=== PATIENT | male | born 1945 | race Caucasian/White ===

== ENCOUNTER 2017-01-04 08:04 | Observation (INO) | payer MEDICARE ==
[2017-01-04] MEDS ORDERED: Aspirin Low Dose CHEW TAB* 81 MG PO ONE (08:15)
[2017-01-04 08:38] LABS: Hematocrit 40 % (42-52); Hemoglobin 14.2 g/dl (14.0-18.0); Mean Corpuscular HGB Conc 36 g/dl (31-36); Mean Corpuscular Hemoglobin 34 pg (27-31); Mean Corpuscular Volume 96 fL (80-94); Mean Platelet Volume 9 um3 (7.4-10.4); Red Blood Count 4.13 10^6/ul (4.0-5.4); Red Cell Distribution Width 14 % (10.5-15); White Blood Count 7.8 10^3/ul (3.5-10.8)
[2017-01-04 08:56] LABS: BUN/Creatinine Ratio 15.6 (8-20); Calcium 8.9 mg/dL (8.6-10.3); EGFR African American 99.9 (>60); EGFR Non-African American 77.7 (>60); Globulin 2.4 g/dL (2-4); Magnesium 1.9 mg/dL (1.9-2.7); Potassium 3.6 mmol/L (3.5-5.0); Total Bilirubin 0.5 mg/dL (0.2-1.0); Total Protein 6.4 g/dL (6.4-8.9)
--- NOTE | 2017-01-04 09:06 | RAD ---
INDICATION: Chest pain COMPARISON: Similar chest x-ray November 17, 2013 TECHNIQUE: Single AP portable view of the chest was obtained. FINDINGS: Image quality is compromised due to the relative inferiority of a portable chest x-ray. The patient appears to be rotated towards his right. The heart and mediastinum exhibit normal size and contour. The lungs are grossly clear. There is no evidence of a large pleural effusion. Visualized bones are normal for the patient's age. IMPRESSION: No radiographic evidence for acute cardiopulmonary abnormality on this portable chest x-ray.
[2017-01-04 09:45] LABS: TSH (Thyroid Stimulating Horm) 3.52 mcIU/mL (0.34-5.60)
[2017-01-04 11:14] LABS: Urine Bilirubin Negative (Negative); Urine Glucose Negative (Negative); Urine Nitrite Negative (Negative)
[2017-01-04] MEDS: Heparin VIAL(*) 5000 UNITS/ML VIAL (FIVE THOUSAND) SUBCUT SCH ×2 (13:41→23:02)
[2017-01-04] MEDS ORDERED: amLODIPine TAB* 5 MG PO SCH (18:00)
[2017-01-04] MEDS ORDERED: Tamsulosin CAP* 0.4 MG PO SCH (18:00)
[2017-01-04] MEDS ORDERED: Ezetimibe TAB* 10 MG PO SCH (18:00)
--- NOTE | 2017-01-04 18:14 | ED ---
Saran Bailey Thomas, scribed for Cameron Forde MD on 01/04/17 at 0922 . HPI Chest Pain - HPI Summary HPI Summary: The pt is a 71 y/o M presenting to the ED c/o CP that began this AM at 04:00. The pain radiates to his left arm. He rates the pain 2/10. 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 He says that this chest pain is similar to his previous MIs. He is unsure of the date of his last stress test. The pain is aggravated and alleviated by nothing. 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 Pt additionally c/o paresthesias in his chest and bilateral arms and diaphoresis. Pt denies N/V, SOB, near-syncope, and dizziness. He took his daily medication. Dr. Shin is his database designer. - History of Current Complaint Chief Complaint: EDChestPainROMI Time Seen by Provider: 01/04/17 08:15 Hx Obtained From: Patient Onset/Duration: Started Hours Ago - onset today at 04:00, Still Present Timing: Constant Current Severity: Mild Pain Intensity: 2 Pain Scale Used: 0-10 Numeric Chest Pain Radiates: Yes Chest Pain Radiates To:: Arm - left Character: Other: - Similar to previous MIs Aggravating Factor(s): Nothing Alleviating Factor(s): Nothing Associated Signs and Symptoms: Positive: Chest Pain, Diaphoresis, Other: - Paresthesias in chest and bilateral forearms; NEGATIVE: near-syncope. Negative : Shortness of Breath, Nausea, Vomiting Related History: Similar Episode/Dx as: - prior MIs - Allergy/Home Medications Allergies/Adverse Reactions: Allergies Allergy/AdvReac Type Severity Reaction Status Date / Time Fish Oil Allergy Stomach Verified 01/04/17 10:04 Cramps Niacin Allergy Rash Verified 01/04/17 10:04 Statins Allergy Muscle Ache Verified 01/04/17 10:04 Home Medications: Home Medications Metoprolol Succinate XL TAB* [Toprol XL TAB*] 100 mg PO DAILY 01/04/17 [History Confirmed 01/04/17] Tamsulosin HCl [Flomax] 0.4 mg PO BEDTIME 01/04/17 [History Confirmed 01/04/17] amLODIPine TAB* [Norvasc 5 mg TAB*] 2.5 mg PO QPM 01/04/17 [History Confirmed ] PMH/Surg Hx/FS Hx/Imm Hx Previously Healthy: No Endocrine/Hematology History: Denies: Hx Diabetes Cardiovascular History: Reports: Hx Angina, Hx Coronary Artery Disease, Hx Hypercholesterolemia, Hx Hypertension, Hx Myocardial Infarction Denies: Hx Valvular Heart Disease Respiratory History: Denies: Hx Asthma, Hx Chronic Obstructive Pulmonary Disease (COPD) - Surgical History Surgery Procedure, Year, and Place: Stents Infectious Disease History: No Infectious Disease History: Denies: Traveled Outside the [place] in Last 30 Days - Family History Known Family History: Positive: Cardiac Disease - Social History Alcohol Use: None Hx Substance Use: No Substance Use Type: Reports: None Hx Tobacco Use: No Smoking Status (MU): Never Smoked Tobacco Review of Systems Positive: Skin Diaphoresis. Negative: Fever Positive: Chest Pain - radiates to his left arm, onset today at 04:00 Negative: Shortness Of Breath Negative: Vomiting, Nausea Neurological: Other - Paresthesias on chest and bilateral forearms. NEGATIVE: near-syncope, dizziness All Other Systems Reviewed And Are Negative: Yes Physical Exam - Summary Physical Exam Summary: VITAL SIGNS: Reviewed. GENERAL: ~Patient is a well-developed and nourished male who is lying comfortable in the stretcher. ~Patient is not in any acute respiratory distress. HEAD AND FACE: No signs of trauma. ~No ecchymosis, hematomas or skull depressions. No sinus tenderness. EYES: PERRLA, EOMI x 2, No injected conjunctiva, no nystagmus. EARS: Hearing grossly intact. Ear canals and tympanic membranes are within normal limits. MOUTH: Oropharynx within normal limits. NECK: Supple, trachea is midline, no adenopathy, no JVD, no carotid bruit, no c- spine tenderness, neck with full ROM. CHEST: Symmetric, no tenderness at palpation LUNGS: Clear to auscultation bilaterally. No wheezing or crackles. CVS: Regular rate and rhythm, S1 and S2 present, no murmurs or gallops appreciated. ABDOMEN: Soft, non-tender. No signs of distention. No rebound no guarding, and no masses palpated. Bowel sounds are normal. EXTREMITIES: FROM in all major joints, no edema, no cyanosis or clubbing. NEURO: Alert and oriented x 3. No acute neurological deficits. Speech is normal and follows commands. SKIN: Dry and warm Triage Information Reviewed: Yes Vital Signs On Initial Exam: Initial Vitals Temp Pulse Resp BP Pulse Ox 98.0 F 74 12 98/67 97 01/04/17 08:05 01/04/17 08:05 01/04/17 08:05 01/04/17 08:05 01/04/17 08:05 Vital Signs Reviewed: Yes - [place] Coma Scale Coma Scale Total: 15 Diagnostics - Vital Signs Vital Signs Temp Pulse Resp BP Pulse Ox 01/04/17 08:41 93 01/04/17 08:30 60 12 103/62 95 01/04/17 08:20 61 12 95 01/04/17 08:18 99/58 01/04/17 08:05 98.0 F 74 12 98 97 - Laboratory Lab Results: Lab Results 01/04/17 01/04/17 01/04/17 Range/Units 08:25 08:25 08:25 WBC (3.5-10.8) 10^3/ul RBC (4.0-5.4) 10^6/ul Hgb (14.0-18.0) g/dl Hct (42-52) % MCV (80-94) fL MCH (27-31) pg MCHC (31-36) g/dl RDW (10.5-15) % Plt Count (150-450) 10^3/ul MPV (7.4-10.4) um3 Neut % (Auto) (38-83) % Lymph % (Auto) (25-47) % [place] % (Auto) (1-9) % Eos % (Auto) (0-6) % Baso % (Auto) (0-2) % Absolute Neuts (auto) (1.5-7.7) 10^3/ul Absolute Lymphs (auto) (1.0-4.8) 10^3/ul Absolute Monos (auto) (0-0.8) 10^3/ul Absolute Eos (auto) (0-0.6) 10^3/ul Absolute Basos (auto) (0-0.2) 10^3/ul Absolute Nucleated RBC 10^3/ul Nucleated RBC % APTT 28.4 (26.0-36.3) seconds Sodium 137 (133-145) mmol/L Potassium 3.6 (3.5-5.0) mmol/L Chloride 107 (101-111) mmol/L Carbon Dioxide 22 (22-32) mmol/L Anion Gap 8 (2-11) mmol/L BUN 15 (6-24) mg/dL Creatinine 0.96 (0.67-1.17) mg/dL Est GFR ( Amer) 99.9 (>60) Est GFR (Non-Af Amer) 77.7 (>60) BUN/Creatinine Ratio 15.6 (8-20) Glucose 134 H (70-100) mg/dL Lactic Acid (0.5-2.0) mmol/L Calcium 8.9 (8.6-10.3) mg/dL Magnesium 1.9 (1.9-2.7) mg/dL Total Bilirubin 0.50 (0.2-1.0) mg/dL AST 20 (13-39) U/L ALT 18 (7-52) U/L Alkaline Phosphatase 47 (34-104) U/L Total Creatine Kinase 154 (10-223) U/L CK-MB (CK-2) 4.1 (0.6-6.3) ng/mL Troponin I 0.00 (<0.04) ng/mL B-Natriuretic Peptide 30 ( - 100) pg/mL Total Protein 6.4 (6.4-8.9) g/dL Albumin 4.0 (3.2-5.2) g/dL Globulin 2.4 (2-4) g/dL Albumin/Globulin Ratio 1.7 (1-3) TSH Pending 01/04/17 01/04/17 Range/Units 08:25 08:25 WBC 7.8 (3.5-10.8) 10^3/ul RBC 4.13 (4.0-5.4) 10^6/ul Hgb 14.2 (14.0-18.0) g/dl Hct 40 L (42-52) % MCV 96 H (80-94) fL MCH 34 H (27-31) pg MCHC 36 (31-36) g/dl RDW 14 (10.5-15) % Plt Count 155 (150-450) 10^3/ul MPV 9 (7.4-10.4) um3 Neut % (Auto) 76.4 (38-83) % Lymph % (Auto) 16.5 L (25-47) % Dorado % (Auto) 5.3 (1-9) % Eos % (Auto) 0.9 (0-6) % Baso % (Auto) 0.9 (0-2) % Absolute Neuts (auto) 5.9 (1.5-7.7) 10^3/ul Absolute Lymphs (auto) 1.3 (1.0-4.8) 10^3/ul Absolute Monos (auto) 0.4 (0-0.8) 10^3/ul Absolute Eos (auto) 0.1 (0-0.6) 10^3/ul Absolute Basos (auto) 0.1 (0-0.2) 10^3/ul Absolute Nucleated RBC 0 10^3/ul Nucleated RBC % 0 APTT (26.0-36.3) seconds Sodium (133-145) mmol/L Potassium (3.5-5.0) mmol/L Chloride (101-111) mmol/L Carbon Dioxide (22-32) mmol/L Anion Gap (2-11) mmol/L BUN (6-24) mg/dL Creatinine (0.67-1.17) mg/dL Est GFR ( Amer) (>60) Est GFR (Non-Af Amer) (>60) BUN/Creatinine Ratio (8-20) Glucose (70-100) mg/dL Lactic Acid 1.3 (0.5-2.0) mmol/L Calcium (8.6-10.3) mg/dL Magnesium (1.9-2.7) mg/dL Total Bilirubin (0.2-1.0) mg/dL AST (13-39) U/L ALT (7-52) U/L Alkaline Phosphatase (34-104) U/L Total Creatine Kinase (10-223) U/L CK-MB (CK-2) (0.6-6.3) ng/mL Troponin I (<0.04) ng/mL B-Natriuretic Peptide ( - 100) pg/mL Total Protein (6.4-8.9) g/dL Albumin (3.2-5.2) g/dL Globulin (2-4) g/dL Albumin/Globulin Ratio (1-3) TSH Result Diagrams: 01/04/17 08:25 09/27/17 08:25 Lab Statement: Any lab studies that have been ordered have been reviewed, and results considered in the medical decision making process. - Radiology CXR Xray Interpretation: No Acute Changes - CXR shows No radiographic evidence for acute cardiopulmonary abnormality on this portable chest x-ray. ED physician has reviewed this report and agrees. Radiology Interpretation Completed By: Radiologist - EKG 08:06 Cardiac Rate: NL - 63 BPM EKG Interpretation: Sinus rhythm. No ST elevations. ST depressions in V4-V6 EKG Comparison: Other - ST depressions are similar to prevoius EKG done on 11/17 Chest Pain Course/Dx - Course Assessment/Plan: The pt is a 71 y/o M presenting to the ED c/o CP that began this AM at 04:00. The pain radiates to his left arm. He rates the pain 2/10. 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 He says that this chest pain is similar to his previous MIs. He is unsure of the date of his last stress test. The pain is aggravated and alleviated by nothing. 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 Pt additionally c/o paresthesias in his chest and bilateral arms and diaphoresis. Pt denies N/V, SOB, near-syncope, and dizziness. He took his daily medication. Dr. Shin is his database designer. Test results are without significant abnormality. Troponin #1 is negative. CXR is negative. However, the patient has comorbidities for ACS and the patients chest pain was relieved by NTG. Therefore, I discussed the case with Dr. Persaud who accepts the patient for admission. The patient is hemodynamically stable and alert and oriented x3. - Chest Pain Differential Diagnosis/HQI/PQRI: Acute KS, ACS, Angina, Aortic Aneurysm, CHF, Chest Wall, GI Disease, Lower Respiratory Infection - Diagnoses Provider Diagnoses: Chest pain rule out ACS - Provider Notifications Discussed Care Of Patient With: Alan Persaud Time Discussed With Above Provider: 09:49 Instructed by Provider To: Other - I consulted with Dr. Persaud, who [place] the patient [place] [facility] [place] Discharge Plan Condition: Fair Disposition: ADMITTED TO [facility] Discharge Disposition Comment: By Dr. Persaud The documentation as recorded by the scribe, Saran,Fernando accurately reflects the service I personally performed and the decisions made by me, Cameron Forde MD.
--- NOTE | 2017-01-04 21:34 | HP ---
CC: Dr. Scotty Quintanilla* HISTORY AND PHYSICAL: DATE OF ADMISSION: 01/04/17 PRIMARY CARE PROVIDER: Dr. Scotty Quintanilla. ATTENDING PHYSICIAN: Dr. Flako Persaud* (report dictated by Ondina Mcmillan NP) CHIEF COMPLAINT: Chest pain. HISTORY OF PRESENT ILLNESS: Mr. Vasquez is a 71-year-old male with past medical history significant for coronary artery disease, status post myocardial infarction x2, hypertension, hyperlipidemia, BPH, and gout who presented to the emergency room with complaints of chest pain. The patient states that he was feeling in his normal state of health when he went to bed last night. He woke at 4 a.m. this morning with a chest discomfort that he describes started as indigestion and radiated up under his left pectoral and then continued to turn into pain radiating down his left arm and causing tingling down his left arm. The patient reports diaphoresis during this episode. He felt that this pain was similar to his previous PA. He took 2 aspirin and a nitro. He states that he tried to get comfortable. He tried to walk, he tried to rest. It is to note that the patient last had a stress test in [address] Shin. He last had a cardiac catheterization in 2010 at which time he had a stent placed inside his original stent. The patient states that he does intermittently get this chest discomfort, but he had the pain from approximately 4 a.m. to a little after 8 a.m. today, that was constant, it did ease up at times, but overall was constant. He denied any fever, chills, associated shortness of breath or nausea and vomiting. He reports that he is able to push mow and use the stair climber for 20 minutes at home without chest discomfort. He is unaware of any food triggers that may be causing the discomfort. The patient reports that his pain started out as feeling like indigestion. He states this is usually how his chest pain starts. He then feels that often if he belches, it will go away and feels better, but in the incident today, the pain did not get better. When the pain continued, he decided to call EMS and be brought to the emergency room for further evaluation of his symptoms. While in the emergency room, the patient had an EKG showing a sinus rhythm at a rate of 53. There were no acute signs of ischemia. His EKG was similar to previous EKG from 11/17/13. He had labs that were unremarkable. He had a troponin of 0.00. TSH of 3.52. Due to the patient's presentation and past medical history, the Hospitalists were asked to evaluate him for admission. PAST MEDICAL HISTORY: 1. Coronary artery disease. 2. Myocardial infarction x2. 3. Hypertension. 4. Hyperlipidemia. 5. BPH. 6. Kidney stones. 7. Gout. PAST SURGICAL HISTORY: 1. Status post cystoscopy. 2. Status post cardiac catheterization x2 in 2000 and 2010. HOME MEDICATIONS: 1. Flomax 0.4 mg oral daily. 2. Norvasc 5 mg oral every morning and 2.5 mg oral every evening. 3. Aspirin 81 mg oral daily. 4. Allopurinol 300 mg oral daily. 5. Zetia 10 mg oral every evening. 6. FiberCon 1250 mg oral daily. 7. Pantoprazole 30 mg oral daily. 8. Metoprolol succinate 100 mg oral daily. 9. Crestor 5 mg oral every other day in the evening. 10. Quinapril 40 mg oral daily. ALLERGIES: The patient has a sensitivity to FISH OIL causing GI upset, STATINS causing muscle aches, and NIACIN causes a rash. FAMILY HISTORY: The patient's son has coronary artery disease and needed stenting in his 40s. The patient's father passed in his 80s from a myocardial infarction and the patient's mother passed at age 91 from a myocardial infarction. The patient denies any family history of diabetes mellitus or cancer. SOCIAL HISTORY: The patient is a former smoker, quitting approximately 16 years ago. Prior to that, he had a 36-year 1 pack a day history. He denies alcohol or recreational drug use. The patient is and lives with his . His , Erendira Lorenzo, will be his surrogate decision maker in the event that he is unable to make decision for himself. REVIEW OF SYSTEMS: I performed a 14-point review of systems. All the pertinent positives and negatives are mentioned in the history of present illness. The remaining review of systems is negative. PHYSICAL EXAMINATION GENERAL APPEARANCE: The patient is alert, pleasant, appears to be in no acute distress. VITAL SIGNS: Temperature 98.0, heart rate 67, respiratory rate 16, O2 sat 95% on room air, blood pressure 101/64. HEENT: Normocephalic, atraumatic. Pupils are equal and reactive to light. Extraocular movements are intact. RESPIRATORY: There is no accessary muscle use. The lungs are clear to auscultation bilaterally. CARDIOVASCULAR: Regular rate and rhythm. S1, S2 present. There are no murmurs , rubs, or gallops heard. ABDOMEN: Soft, nontender, and nondistended. There are bowel sounds present x4. EXTREMITIES: There is no lower extremity edema. DP and PT pulses are 2+ and symmetric. MUSCULOSKELETAL: There is no clubbing or cyanosis noted. The patient exhibits good strength in all extremities. NEUROLOGICAL: The patient is alert and oriented x4. Cranial nerves II through XII are grossly intact. PSYCHOLOGICAL: The patient is calm and cooperative. SKIN: There are no rashes or abnormalities seen. DIAGNOSTIC STUDIES/LABORATORY DATA: Sodium 137, potassium 3.7, chloride 107, CO2 22, BUN 15, creatinine 0.96, glucose 134. White blood cell count 7.8, hemoglobin 14.2, hematocrit 40, platelet count 155, troponin 0.00, TSH 3.52. Urinalysis negative. EKG shows sinus rhythm, rate of 63 with PVCs. There are no acute signs of ischemia. This EKG is similar to previous EKG from 11/17/13. Chest x-ray from today. Radiologist impression: No acute cardiopulmonary abnormality on this portable chest x-ray. IMPRESSION: Mr. Vasquez is a 71-year-old male with past medical history significant for coronary artery disease, myocardial infarction, hypertension, hyperlipidemia, and benign prostatic hypertrophy who presents to the emergency room with complaints of constant chest pain for approximately 4 hours starting this morning in addition to occasional intermittent chest discomfort. He will be admitted as an observation for chest pain, rule out acute coronary syndrome. ASSESSMENT AND PLAN: 1. Chest pain. Rule out acute coronary syndrome. The patient will be monitored on telemetry. His initial troponin is 0.00. He has no signs of acute ischemia on his EKG. We will trend the patient's troponin's. If he does in fact rule out for acute coronary syndrome, we will do an exercise nuclear stress test in the morning. I have discussed the patient with his primary web merchandiser, Dr. Shin, who agrees with the plan of care. His THOMAS score is a 3. 2. History of coronary artery disease and myocardial infarction x2. We will continue the patient on his aspirin, Zetia, FiberCon, Crestor, and metoprolol. 3. Hypertension. We will continue the patient on his home metoprolol and Norvasc. 4. Hyperlipidemia. We will continue the patient on Zetia, FiberCon on Crestor. We will also check fasting lipids in the morning. 5. Benign prostatic hypertrophy. We will continue the patient on tamsulosin. 6. Gout. We will continue the patient on his home allopurinol. 7. Fluids, electrolytes, and nutrition. The patient will be on heart-healthy diet. 8. Code status. Full code. 9. DVT prophylaxis. The patient is on high risk and will have subcu heparin. 10. Disposition. Observation. TIME SPENT: Time spent for this admission was approximately 60 minutes, greater than half of that was spent with the patient and discussing medications, past medical history, and events leading up to his arrival today and performing a physical examination. The case has been reviewed with the attending, Dr. Persaud, who agrees with the plan of care. Reviewed by NIRU HARMAN 01/10/17 1729 [id number]/[facility] #: [id number] AILIN
[2017-01-05 05:09] LABS: HDL Cholesterol 36.7 mg/dL
[2017-01-05] MEDS: Heparin VIAL(*) 5000 UNITS/ML VIAL (FIVE THOUSAND) SUBCUT SCH (05:35)
[2017-01-05] MEDS ORDERED: Allopurinol TAB* 300 MG PO SCH (09:00)
[2017-01-05] MEDS ORDERED: Metoprolol Succinate XL TAB* 100 MG PO SCH (09:00)
[2017-01-05] MEDS ORDERED: Aspirin Low Dose CHEW TAB* 81 MG PO SCH (09:00)
[2017-01-05] MEDS ORDERED: Calcium Polycarbophil TAB* 625 MG PO SCH (09:00)
[2017-01-05] MEDS ORDERED: Lisinopril TAB* 10 MG PO SCH (09:00)
[2017-01-05] MEDS ORDERED: amLODIPine TAB* 5 MG PO SCH (09:00)
[2017-01-05] MEDS ORDERED: Omeprazole CAP* 20 MG PO SCH (09:00)
[2017-01-05 09:49] VITALS: BP 134/71
--- NOTE | 2017-01-05 09:54 | RAD ---
INDICATION: Chest pain. Previous MR COMPARISON: December 23, 2014 TECHNIQUE: A single day SPECT protocol was utilized. Rest images were acquired following the intravenous injection of 10.99 millicuries of technetium 99m tetrofosmin. Exercise stress images were acquired following the intravenous administration of 25.87 millicuries of technetium 99m tetrofosmin. The patient was exercised to a peak heart rate of 142 which is 94 of age predicted maximum. FINDINGS: There is a moderate-sized inferior wall defect which appears fixed and is consistent with prior myocardial infarction. The current examination shows no definitive rigoberto-infarct ischemia.. The cardiac chamber size is normal. There there is hypokinesis in the inferior wall. The ejection fraction is calculated at 40% percent stress. IMPRESSION: MODERATE SIZED FIXED INFERIOR WALL DEFECT. HYPOKINESIS INFERIOR WALL WITH DEPRESSED EJECTION FRACTION. ASSESSMENT: INTERMEDIATE-RISK
--- NOTE | 2017-01-05 12:08 | PN ---
Subjective Date of Service: 01/05/17 Interval History: Patient seen and examined at bedside. Pt denies any further chest discomfort since he was in the emergency room. Denies fever, chills, shortness of breath, N /V/D. Pt states that he is able to push mow for 45 minutes and work on the stair climber for 20-30 minutes without chest discomfort. Tele: Sinus rhythm, rate 50-70's, few short episodes of sinus bhavesh with HR as low as 48., few PVCs. Family History: Unchanged from Admission Social History: Unchanged from Admission Past Medical History: Unchanged from Admission Objective Active Medications: Allopurinol (Zyloprim Tab*) 300 mg PO DAILY [facility] Amlodipine Besylate (Norvasc Tab*) 5 mg PO QAM [facility] Amlodipine Besylate (Norvasc Tab*) 2.5 mg PO QPM [facility] Aspirin (Aspirin Low Dose Tab*) 81 mg PO DAILY [facility] Calcium Polycarbophil (Fibercon Tab*) 1,250 mg PO DAILY [facility] Ezetimibe (Zetia Tab*) 10 mg PO QPM [facility] Heparin Sodium (Porcine) (Heparin Vial(*)) 5,000 units SUBCUT Q8HR [facility] Lisinopril (Prinivil Tab*) 40 mg PO DAILY [facility] Metoprolol Succinate (Toprol Xl Tab*) 100 mg PO DAILY [facility] Omeprazole (Prilosec Cap*) 20 mg PO DAILY [facility] Rosuvastatin Calcium (Crestor (Nf)) 5 mg PO EVERY OTHER DAY@0900 [facility] Reason: Protocol Tamsulosin HCl (Flomax Cap*) 0.4 mg PO DAILY@1800 [facility] Vital Signs 01/04/17 01/04/17 01/04/17 15:26 19:37 23:21 Temperature 97.7 F 98.2 F 97.5 F Pulse Rate 57 60 55 Respiratory 18 18 16 Rate Blood Pressure 113/64 132/64 116/72 (mmHg) O2 Sat by Pulse 98 98 98 Oximetry 01/05/17 01/05/17 01/05/17 04:30 08:00 09:47 Temperature 98.1 F 97.4 F Pulse Rate 59 62 Respiratory 16 16 Rate Blood Pressure 124/60 134/71 (mmHg) O2 Sat by Pulse 98 99 Oximetry Oxygen Devices in Use Now: None Appearance: NAD, sitting up in bed Ears/Nose/Mouth/Throat: Mucous Membranes Moist Respiratory: Symmetrical Chest Expansion and Respiratory Effort, Clear to Auscultation Cardiovascular: NL Sounds; No Murmurs; No JVD, RRR Abdominal: NL Sounds; No Tenderness; No Distention Extremities: No Edema Skin: No Rash or Ulcers Neurological: Alert and Oriented x 3, NL Muscle Strength and Tone Lines/Tubes/Other Access: Clean, Dry and Intact Peripheral IV - site benign Nutrition: Taking PO's Result Diagrams: 01/04/17 08:25 01/04/17 08:25 Additional Lab and Data: Assess/Plan/Problems-Billing Assessment: Mr. Vasquez is a 71 yo male with PMH significant for CAD, VA x2 with stents, HTN, HLD, BPH, and gout who presented to the emergency room with complaints of chest pain. - Patient Problems (1) Chest pain Code(s): R07.9 - CHEST PAIN, UNSPECIFIED SNOMED Code(s): 23266162 Comment: - Chest pain free since arrival to ED - Pt was able to do exercise stress test without chest pain - Troponin 0.00 x3 - Fasting lipids - WNL - Nuclear exercise stress test - Negative exercise stress, Intermediate risk - moderate sized fixed inferior wall defect, hypokenesis inferior wall with depressed EF. 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 (2) CAD (coronary artery disease) Code(s): I25.10 - ATHSCL HEART DISEASE OF [place] CORONARY ARTERY W/O ANG PCTRS SNOMED Code(s): 28549404 Comment: - S/P VA x2 with stents - Continue ASA, Zetia, Fibercon, Crestor, and metoprolol (3) HTN (hypertension) Code(s): I10 - ESSENTIAL (PRIMARY) HYPERTENSION SNOMED Code(s): 29510244 Comment: - Normotensive - Continue Norvasc and metoprolol (4) HLD (hyperlipidemia) Code(s): E78.5 - HYPERLIPIDEMIA, UNSPECIFIED SNOMED Code(s): 03360426 Comment: - Lipids WNL - Continue Zetia, Fibercon, creastor (5) BPH (benign prostatic hyperplasia) Code(s): N40.0 - BENIGN PROSTATIC HYPERPLASIA WITHOUT LOWER URINRY TRACT SYMP SNOMED Code(s): 088154067 Comment: - Continue tamsulosin (6) Gout Code(s): M10.9 - GOUT, UNSPECIFIED SNOMED Code(s): 11280037 Comment: - Continue allopurinol (7) DVT prophylaxis Code(s): DVT6702 - SNOMED Code(s): 851126980 (8) Full code status Code(s): Z78.9 - OTHER SPECIFIED HEALTH STATUS SNOMED Code(s): 064644355 Status and Disposition: OBV. Stable for discharge to home.
[2017-01-06] MEDS ORDERED: CMC:Rosuvastatin (NF) 5 MG TAB PO SCH (09:00)
--- NOTE | 2017-01-06 13:23 | DS ---
CC: Dr. Reji Shin; Dr. Scotty Quintanilla * DISCHARGE SUMMARY: DATE OF ADMISSION: 01/04/17 DATE OF DISCHARGE: 01/05/17 ATTENDING PHYSICIAN: Dr. Alfa Henao * (dictated by Ondina Mcmillan NP) PRIMARY CARE PROVIDER: Dr. Scotty Quintanilla. PRIMARY DIAGNOSIS: Chest pain, unclear etiology. Suspect secondary to acid reflux. SECONDARY DIAGNOSES: 1. History of coronary artery disease. 2. Myocardial infarction x2. 3. Hypertension. 4. Hyperlipidemia. 5. Benign prostatic hypertrophy 6. Gout. PROCEDURES WHILE IN THE HOSPITAL: Nuclear exercise stress test on 01/05/17. Employment Assistant's impression: Negative exercise EKG for inducible ischemia and excess of heart rate. Low risk stress TM DTS +5. Normal limit rest BP. Normal limit exercise BP. MPI pending per radiology. Radiologist's impression : Intermediate risk. Moderate sized fixed inferior wall defect. Hypokinesis inferior wall with depressed ejection fraction. STUDIES WHILE IN THE HOSPITAL: Chest x-ray from 01/04/17. Radiologist's impression: No acute cardiopulmonary abnormality on this portable chest x-ray. DISCHARGE MEDICATIONS: Continued home medications: 1. Flomax 0.4 mg oral daily. 2. Norvasc 5 mg oral every morning and 2.5 mg oral every evening. 3. Aspirin 81 mg oral daily. 4. Allopurinol 300 mg oral daily. 5. Zetia 10 mg oral every evening. 6. FiberCon 1250 mg oral daily. 7. Pantoprazole 30 mg oral daily. 8. Metoprolol succinate 100 mg oral daily. 9. Crestor 5 mg oral every other day in the evening. 10. Quinapril 40 mg oral daily. HISTORY OF PRESENT ILLNESS/HOSPITAL COURSE: Mr. Vasquez is a 71-year-old male with past medical history significant for coronary artery disease, status post myocardial infarction x2 with cardiac stents, hypertension, hyperlipidemia, BPH , and gout who presented to the emergency room with complaints of chest discomfort. The patient states that he was in his normal state of health when he woke at approximately 4 a.m. with chest discomfort that he felt like initially started like indigestion then radiated up underneath his left pectoral and continued to radiate into his left arm causing pain and tingling down his arm. The patient also reported diaphoresis with this episode. The patient states that the pain was similar to his previous VT. He reported feeling of doom. He took 2 aspirin and nitroglycerin. He tried to walk around and get comfortable, he would walk and rest, he was unable to relieve the pain at home, so he called EMS and the patient was brought to the emergency room for further evaluation of his symptoms. It is of note that prior to that the patient had a stress test last in [address] Shin. He also last had a cardiac catheterization in 2010, at which time he had a second stage stent placed inside his original stent. The patient states that he intermittently gets a chest discomfort that initially starts out as like an indigestion, sometimes he is able to belch and it goes the away; other times he is unable to get that discomfort to go away. Patient also reports that he is able to push mow his lawn and exercise for 20 minutes on the stepper without any chest discomfort at home. He is unable to associate his discomfort with anything that he is eating. While in the emergency room the patient had an EKG sinus bradycardia with a rate of 53. He showed no acute signs of ischemia, it was similar to previous EKG from 11/17/13. The patient had labs drawn that were unremarkable. He had initial troponin 0.00. Due to the patient's history and presentation hospitalists were asked to evaluate the patient for admission. While in the hospital, the patient had his troponins trended. He remained flat at 0.00. He underwent an exercise nuclear stress test within normal exercise portion and the nuclear medicine portion read as an intermediate risk due to a moderate sized fixed inferior wall defect and hypokinesis. Patient continued to be chest pain free during his stay. It is to note that his EF is slightly lower than his previous EF from stress test in 2014, at which time his EF was 48 %. Cardiology on- call was side consulted due to the intermediate risk of the stress test. He felt that this are of fixed defect was from the patient's previous MIs and he was okay to be discharged with the close followup with his primary care provider. The patient had lipid panel that was within normal limits. He was intermittently bradycardic with heart rate down to 52, the lowest was at 48. He had occasional PVCs. Mr. Vasquez is stable for discharge to home today. PHYSICAL EXAMINATION: Vital Signs are as follows; temperature 97.4, heart rate 62, respiratory rate 16, O2 sat 99% on room air. Blood pressure 154/71. DISCHARGE PLAN: Mr. Vasquez is stable for discharge home today. ACTIVITY: As tolerated. DIET: Heart healthy diet. As far as the patient's chest discomfort at this time it is unclear etiology, although I suspect it could be secondary to indigestion. Patient will be continued on his usual home medications and has had no changes in his medications. The patient has a follow up appointment with his primary care provider, Dr. Quintanilla on January 11 at 2 p.m. then he has a follow up appointment with his wood barker Dr. Shin on February 18 at 3 :20 p.m. The patient has been asked to return to the emergency room for any return of chest pain or shortness of breath. This is a summarized report of a complex medical history and hospital stay. For further details, please see the entire medical record. TIME SPENT: Time for this discharge was approximately 60 minutes, greater than half of that was spent [id number] with the patient discussing medications, discharge plans and instructions. CONDITION ON DISCHARGE: Stable. Reviewed by NIRU HARMAN 01/10/17 1731 [id number]/[facility] #: [id number] AILIN
== END 2017-01-05 12:25 | disposition home or self-care (01) ==
LOC: ED 08:04 → MEDTELE 10:45
PROVIDERS: ADMIT Internal Medicine; ATTEND Internal Medicine
DX: R07.9 Chest pain, unspecified (principal); I25.10 Atherosclerotic heart disease of native coronary artery without angina pectoris; I25.2 Old myocardial infarction; I10 Essential (primary) hypertension; E78.5 Hyperlipidemia, unspecified; N40.0 Benign prostatic hyperplasia without lower urinary tract symptoms; M10.9 Gout, unspecified; R94.31 Abnormal electrocardiogram [ECG] [EKG]; Z79.899 Other long term (current) drug therapy; Z88.1 Allergy status to other antibiotic agents; Z88.8 Allergy status to other drugs, medicaments and biological substances; Z87.442 Personal history of urinary calculi; Z87.891 Personal history of nicotine dependence; Z95.5 Presence of coronary angioplasty implant and graft
CPT/HCPCS: 36415; 71010; 78452; 80053; 80061; 81003; 82550; 82553; 83605; 83735; 83880; 84443; 84484; 85025; 85730; 93005; 93017; 96360; 96372; 99284; A9270-GY; A9502; G0378; J1644

== ENCOUNTER 2018-11-05 09:11 | Observation (INO) | payer MEDICARE ==
[2018-11-05 09:36] LABS: ABS Basophils 0.1 10^3/ul (0-0.2); ABS Eosinophils 0.1 10^3/ul (0-0.6); ABS Lymphocytes 1.6 10^3/ul (1.0-4.8); ABS Monocytes 0.6 10^3/ul (0-0.8); ABS Neutrophils 5.9 10^3/ul (1.5-7.7); Eosinophil % 1.6 %; Hematocrit 43 % (42-52); Hemoglobin 15.5 g/dL (14.0-18.0); Lymphocyte % 19.2 %; Mean Corpuscular HGB Conc 37 g/dL (31-36); Mean Corpuscular Hemoglobin 35 pg (27-31); Mean Corpuscular Volume 95 fL (80-94); Mean Platelet Volume 8.9 fL (7.4-10.4); Platelet Count 171 10^3/uL (150-450); Red Blood Count 4.45 10^6 /uL (4.18-5.48); Red Cell Distribution Width 13 % (10-15); White Blood Count 8.2 10^3/uL (3.5-10.8)
[2018-11-05 09:41] LABS: INR 1.06 (0.82-1.09)
--- NOTE | 2018-11-05 09:46 | ED ---
HPI Chest Pain - HPI Summary HPI Summary: Patient is a 73 y/o M w/ Hx of two MIs who presents to ED with complaints of chest pain, left arm tingling/ache, diaphoresis, and "whole body" tingling. Patient states that he had onset of Sx two days ago when he woke up. He states he felt like he was "run through a meat packer". He reports that he took "a couple" of ASA at the time, which seemed to resolve Sx. This morning, he woke up again with Sx. He reports that he took one nitro at around 0700/0730 and another dose 30 minutes later. At present, he states that his Sx have been resolved. Patient notes that these episodes of Sx had felt similar to his previous MIs, but more severe. Patient states that he had a stent placed for his first HI and later needed to have this stent replaced during his second HI. He denies chest pain with deep breaths, coughing, and pain/swelling in legs. He additionally notes that he had a "heavy duty" dizziness spell three weeks ago, stating he was experiencing dizziness intermittently for 3-4 hours. Patient followed up with Dr. Rodriguez, had Holter monitor placed and was noted to have "double" his PVCs. Dr. Rodriguez wanted to perform "various" tests and the patient is noted to have a nuclear stress test scheduled towards the end of November. Patient does not report fever, chills, erythema of eyes, sore throat, SOB, cough, abdominal pain, N/V, dysuria, hematuria, myalgia, edema, rash. On triage, pain is rated 2/10, ntro is noted to alleviate Sx, nothing is noted to aggravate Sx. Home medications and allergies are reviewed. - History of Current Complaint Chief Complaint: EDChestPainROMI Time Seen by Provider: 11/05/18 09:23 Hx Obtained From: Patient Onset/Duration: Started Days Ago - two, Started Weeks Ago - dizziness three weeks ago, Still Present Timing: Intermittent, Lasting Weeks - dizziness three weeks ago Current Severity: None - in room, he states Sx have resolved Pain Scale Used: 0-10 Numeric Chest Pain Radiates: Yes Chest Pain Radiates To:: Arm - left Character: Dull/Aching - left arm, Other: - "whole body" tingling Aggravating Factor(s): Nothing Alleviating Factor(s): NTG 123 Associated Signs and Symptoms: Positive: Chest Pain, Tingling - "whole body", left arm, Dizziness - dizziness three weeks ago, Other: - does not report erythema of eyes, sore throat, dysuria, hematuria, myalgia, rash. Negative: Shortness of Breath, Swelling, Fever, Chills, Nausea, Cough, Productive Cough, Nonproductive Cough, Abdominal Pain, Calf Pain/Swelling, Vomiting, Edema - Allergy/Home Medications Allergies/Adverse Reactions: Allergies Allergy/AdvReac Type Severity Reaction Status Date / Time adhesive tape Allergy Rash And Verified 11/05/18 09:27 Itching fish oil Allergy Stomach Verified 11/05/18 09:27 Cramps niacin Allergy Rash Verified 11/05/18 09:27 [id number] Reductase Allergy Muscle Ache Verified 11/05/18 09:27 Inhibitor PMH/Surg Hx/FS Hx/Imm Hx Endocrine/Hematology History: Denies: Hx Diabetes Cardiovascular History: Reports: Hx Angina, Hx Coronary Artery Disease, Hx Hypercholesterolemia, Hx Hypertension, Hx Myocardial Infarction Denies: Hx Valvular Heart Disease Respiratory History: Denies: Hx Asthma, Hx Chronic Obstructive Pulmonary Disease (COPD) GI History: Reports: Hx Gastroesophageal Reflux Disease History: Reports: Hx Benign Prostatic Hyperplasia, Hx Kidney Stones Musculoskeletal History: Reports: Hx Gout Sensory History: Reports: Hx Contacts or Glasses - does not have contacts with him Denies: Hx Hearing Aid Opthamlomology History: Reports: Hx Contacts or Glasses - does not have contacts with him - Surgical History Surgery Procedure, Year, and Place: Stents Infectious Disease History: No Infectious Disease History: Denies: Traveled Outside the [place] in Last 30 Days - Family History Known Family History: Positive: Cardiac Disease - Social History Alcohol Use: None Hx Substance Use: No Substance Use Type: Reports: None Hx Tobacco Use: No Smoking Status (MU): Former Smoker Type: Cigarettes Review of Systems Positive: Skin Diaphoresis. Negative: Fever, Chills Negative: Erythema Negative: Sore Throat Positive: Chest Pain Negative: Shortness Of Breath, Cough Negative: Abdominal Pain, Vomiting, Nausea Negative: dysuria, hematuria Positive: Myalgia - positive - aching of left arm; negative - calf pain . Negative: Edema Negative: Rash Neurological: Other - positive - dizziness, three weeks ago, tingling of "whole body", left arm All Other Systems Reviewed And Are Negative: Yes Physical Exam - Summary Physical Exam Summary: Constitutional: Well-developed, Well-nourished, Alert. (-) Distressed Skin: Warm, Dry HENT: Normocephalic; Atraumatic Eyes: Conjunctiva normal Neck: Musculoskeletal ROM normal neck. (-) JVD, (-) Stridor, (-) Tracheal deviation Cardio: Rhythm regular, rate normal, Heart sounds normal; Intact distal pulses; The pedal pulses are 2+ and symmetric. Radial pulses are 2+ and symmetric. (-) Murmur Pulmonary/Chest wall: Effort normal. (-) Respiratory distress, (-) Wheezes, (-) Rales Abd: Soft, (-) tenderness, (-) Distension, (-) Guarding, (-) Rebound Musculoskeletal: (-) Edema Lymph: (-) Cervical adenopathy Neuro: Alert, Oriented x3 Psych: Mood and affect Normal Triage Information Reviewed: Yes Vital Signs On Initial Exam: Initial Vitals Temp Pulse Resp BP Pulse Ox 97.7 F 72 16 138/84 97 11/05/18 09:19 11/05/18 09:19 11/05/18 09:19 11/05/18 09:19 11/05/18 09:19 Vital Signs Reviewed: Yes Diagnostics - Vital Signs Vital Signs Temp Pulse Resp BP Pulse Ox 11/05/18 09:22 77 16 138/84 97 11/05/18 09:21 70 15 97 11/05/18 09:19 97.7 F 72 16 138/84 97 - Laboratory Result Diagrams: 11/05/18 09:28 11/05/18 09:28 Lab Statement: Any lab studies that have been ordered have been reviewed, and results considered in the medical decision making process. - Radiology CXR Radiology Interpretation Completed By: Radiologist Summary of Radiographic Findings: CXR IMPRESSION: NO ACTIVE CARDIOPULMONARY DISEASE. THIS REPORT WAS REVIEWED BY DR. HUERTA. - EKG 0916 Cardiac Rate: Other Rate - rate of 69 BPM EKG Rhythm: Sinus Rhythm Summary of EKG Findings: EKG showed sinus rhythm with rate of 69 BPM, no STEMI. Chest Pain Course/Dx - Course Course Of Treatment: Patient is a 73 y/o M w/ Hx of two MIs who presents to ED with complaints of chest pain, left arm tingling/ache, diaphoresis, and "whole body" tingling. Patient states that he had onset of Sx two days ago when he woke up. He states he felt like he was "run through a meat packer". He reports that he took "a couple" of ASA at the time, which seemed to resolve Sx. This morning, he woke up again with Sx. He reports that he took one nitro at around 0700/0730 and another dose 30 minutes later. At present, he states that his Sx have been resolved. Patient notes that these episodes of Sx had felt similar to his previous MIs, but more severe. Patient states that he had a stent placed for his first HI and later needed to have this stent replaced during his second HI. He denies chest pain with deep breaths, coughing, and pain/swelling in legs. Physical exam is unremarkable. EKG showed sinus rhythm with rate of 69 BPM, no STEMI. CXR IMPRESSION: NO ACTIVE CARDIOPULMONARY DISEASE. Labs showed MCV 95, MCH 35, MCHC 37, glucose 123, trop 0. During ED course, patient received nitro 1 inch, TOPICAL. Patient's case was discussed with Dr. Andres, Dr. Andres accepts for admission. Dx of unstable angina. - Diagnoses Provider Diagnoses: Unstable angina - Provider Notifications Discussed Care Of Patient With: Dorothy Andres Time Discussed With Above Provider: 10:07 Instructed by Provider To: Other - Patient's case was discussed with Dr. Andres , Dr. Andres accepts for admission. Dx of unstable angina. Discharge - Sign-Out/Discharge Documenting (check all that apply): Patient Departure - admit Patient Received Moderate/Deep Sedation with Procedure: No - Discharge Plan Condition: Stable Disposition: ADMITTED TO [facility] Referrals: Scotty Quintanilla MD [Primary Care Provider] - - Attestation Statements Document Initiated by Scribe: Yes Documenting Scribe: ZHANE SMITH Provider For Whom Jacqueline is Documenting (Include Credential): MANDY UHERTA MD Scribe Attestation: ZHANE Bailey, scribed for MANDY HUERTA MD on 11/05/18 at 1043. Status of Scribe Document: Ready
[2018-11-05] MEDS ORDERED: Nitro 2% OINT* (Nitroglycerin) 1 INCH/PAK PAK TOPICAL ONE (09:47)
[2018-11-05 09:54] LABS: Albumin 4.4 g/dL (3.2-5.2); Albumin/Globulin Ratio 1.7 (1-3); BUN/Creatinine Ratio 19.4 (8-20); Calcium 9.4 mg/dL (8.6-10.3); EGFR African American 86.1 (>60); EGFR Non-African American 71.2 (>60); Globulin 2.6 g/dL (2-4); Total Bilirubin 0.6 mg/dL (0.2-1.0)
--- OUTSIDE RECORDS SUMMARY | 2018-11-05 09:56 | XMS REPORT | Continuity of Care Document ---
:1945 External Reference #:[id number] Author Name Lee Ann Hernandez Care Team Providers Name Role Phone Scotty Quintanilla MD Primary Care Physician Unavailable Payers Date Identification Numbers Payment Provider Subscriber Effective: 2016 Policy Number: [id number] [employer] Misael Vasquez PayID: [id number] [address] [place] [address] Problems Active Problems Provider Date Chronic ischemic heart disease Reji Shin M.D., [place], [facility] Onset: 2012 Hyperlipidemia Reji Shin M.D., [facility], [facility] Onset: 02/13/2013 Benign essential hypertension Reji Shin M.D., [facility], [facility] Onset: 2012 Premature beats Reji Shin M.D., [facility], [facility] Onset: 08/21/2013 Chest pain Reji Shin M.D., [facility], [facility] Onset: 12/23/2014 Essential hypertension Reji Shin M.D., [facility], [facility] Onset: 03/10/2015 Obesity Reji Shin M.D., [facility], [facility] Onset: 03/10/2015 Chronic ischemic heart disease, Reji Shin M.D., [facility], [facility] Onset: 2014 unspecified Atherosclerotic heart disease of Reji Shin M.D., [facility], [facility] Onset: 2016 [place] coronary artery without angina pectoris Family History Date Family Member(s) Observation Comments Father Asthma Father due to SD () - at age 86 Mother Hypercholesterolemia Mother due to SD () - at age 91 Siblings 4 Social History Type Date Description Comments Sex Unknown Marital Status Lives With Spouse Occupation Retired ETOH Use Denies alcohol use Tobacco Use Start: Unknown End: Patient is a former quit in 2000 Unknown smoker Recreational Drug Use Denies Drug Use Smoking Status Reviewed: 11/01/18 Patient is a former quit in 2000 smoker Exercise Type/Frequency Exercises regularly Allergies, Adverse Reactions, Alerts Active Allergies Reaction Severity Comments Date Statins myalgias 01/30/2012 Fish Oil Nausea and Vomiting 01/30/2012 Niaspan rash/itching 01/30/2012 Medications Active Medications SIG Qnty Indications Ordering Provider Date Amlodipine Besylate 1 tab by mouth 180tabs Qutaybeh S. 12/18/2014 5mg twice a day Laila Rodriguez Tablets Nitrostat one sl q5min up 25tabs Qutaybeh S. 12/18/2014 0.4mg Tablets to 3 doses Laila Rodriguez Sub maximum, as needed for chest pain. Metoprolol Succinate 1 by mouth 90tabs Qutaybeh S. 12/05/2014 ER every day Laila Rodriguez 100mg Tablets ER 24HR Aspirin 1 po qd Reji Shin, 02/13/2013 81mg Tablets M.DDajuan, [facility], [facility] Lansoprazole 1 po qd 90caps Unknown 30mg Capsules DR Quinapril HCL 1 po qd 90tabs Unknown 40mg Tablets Allopurinol 1 po qd 30tabs Unknown 300mg Tablets Zetia 1 po qd 90tabs Unknown 10mg Tablets Crestor 1 po qod Unknown 5mg Tablets Fibercon 2 po qd 90tabs Unknown 625mg Tablets History Medications Metoprolol Succinate 2 by mouth in the 180tabs Reji Shin, 04/07/2014 - ER morning M.DDajuan, [facility], 12/05/2014 50mg Tablets ER 24HR [facility] Metoprolol Succinate 1 and 1/2 tab by 150tabs Reji Shin, 08/08/2012 - ER mouth a day MDajuanDDajuan, [facility], 04/07/2014 50mg Tablets ER 24HR [facility] Clopidogrel 1 tab by mouth 90tabs Reji Shin, 05/08/2012 - 75mg every day M.DDajuan, [facility], 02/13/2013 Tablets [facility] Co Q-10 1 po qd Unknown - 100mg Capsules 04/06/2014 Fish Oil 2 by mouth every Unknown - 1000mg day, depending on 03/05/2018 Capsules digestion Tamsulosin HCL 1 cap po daily Andres Curran, - 0.4mg 10/15/2018 Capsules Vital Signs Date Vital Result Comment 11/01/2018 10:27am Height 70 inches 5'10" Weight 221.25 lb with shoes Heart Rate 60 /min left radial BP Systolic Sitting 132 mmHg ule reg cuff BP Diastolic Sitting 88 mmHg ule reg cuff BP Systolic Standing 132 mmHg ule reg cuff BP Diastolic Standing 78 mmHg ule reg cuff BMI (Body Mass Index) 31.7 kg/m2 Ejection Fraction 45-50% Echo 03/28/18 10/16/2018 2:45pm Height 70 inches 5'10" Weight 222.00 lb with shoes Heart Rate 58 /min radial, regular BP Systolic Sitting 138 mmHg LA, reg cuff BP Diastolic Sitting 76 mmHg LA, reg cuff BP Systolic Standing 122 mmHg LA, reg cuff BP Diastolic Standing 70 mmHg LA, reg cuff BMI (Body Mass Index) 31.9 kg/m2 Ejection Fraction 45%-50% echo 03/28/18 03/06/2018 1:50pm Height 70 inches 5'10" Heart Rate 62 /min BP Systolic Sitting 110 mmHg BP Diastolic Sitting 80 mmHg BP Systolic Standing 100 mmHg BP Diastolic Standing 68 mmHg Ejection Fraction 217 02/08/2017 1:38pm Height 70 inches 5'10" Weight 216.00 lb with shoes Heart Rate 56 /min sit and 54 stand reg w/ ectopy BP Systolic Sitting 142 mmHg Lue lg cuff BP Diastolic Sitting 80 mmHg Lue lg cuff BP Systolic Standing 132 mmHg Lue lg cuff BP Diastolic Standing 88 mmHg Lue lg cuff Respiratory Rate 16 /min BMI (Body Mass Index) 31.0 kg/m2 Ejection Fraction 45-50% date 11/21/10 ECHO 09/22/2015 3:46pm Height 70 inches 5'10" Weight 214.25 lb with shoes Heart Rate 82 /min BP Systolic Sitting 126 mmHg LA lrg cuff BP Diastolic Sitting 70 mmHg LA lrg cuff BP Systolic Standing 124 mmHg LA lrg cuff BP Diastolic Standing 66 mmHg LA lrg cuff BMI (Body Mass Index) 30.7 kg/m2 Ejection Fraction 45% - 50% 11/21/10 echo 03/10/2015 2:50pm Height 70 inches 5'10" Weight 218.00 lb Heart Rate 66 /min 72 BP Systolic Sitting 122 mmHg left arm, reg cuff BP Diastolic Sitting 78 mmHg left arm, reg cuff BP Systolic Standing 102 mmHg left arm, reg cuff BP Diastolic Standing 76 mmHg left arm, reg cuff Respiratory Rate 16 /min BMI (Body Mass Index) 31.3 kg/m2 Ejection Fraction 48% 12/23/14 Nem 12/23/2014 2:47pm Height 70 inches 5'10" Weight 218.00 lb Heart Rate 60 /min 74 BP Systolic Sitting 112 mmHg left arm, reg cuff BP Diastolic Sitting 68 mmHg left arm, reg cuff BP Systolic Standing 108 mmHg left arm, reg cuff BP Diastolic Standing 68 mmHg left arm, reg cuff Respiratory Rate 16 /min BMI (Body Mass Index) 31.3 kg/m2 Ejection Fraction 48% 12/23/14 - Nem 12/22/2014 10:01am Height 70 inches 5'10" Heart Rate 54 /min 64 BP Systolic 152 mmHg Home BP cuff LA BP Diastolic 115 mmHg Home BP cuff LA BP Systolic Sitting 148 mmHg left arm, reg cuff BP Diastolic Sitting 104 mmHg left arm, reg cuff BP Systolic Standing 126 mmHg left arm, reg cuff BP Diastolic Standing 84 mmHg left arm, reg cuff Respiratory Rate 20 /min 10/13/2014 11:38am Height 70 inches 5'10" Weight 217.00 lb per pt report Heart Rate 68 /min BP Systolic 126 mmHg right arm reg cuff BP Diastolic 76 mmHg right arm reg cuff BP Systolic Standing 128 mmHg right arm reg cuff BP Diastolic Standing 78 mmHg right arm reg cuff Respiratory Rate 18 /min BMI (Body Mass Index) 31.1 kg/m2 10/06/2014 2:34pm Height 70 inches 5'10" Weight 217.00 lb w/shoes Heart Rate 64 /min 76 BP Systolic 148 mmHg LA reg cuff BP Diastolic 86 mmHg LA reg cuff BP Systolic Sitting 150 mmHg LA reg cuff BP Diastolic Sitting 86 mmHg LA reg cuff Respiratory Rate 12 /min BMI (Body Mass Index) 31.1 kg/m2 Ejection Fraction 45-50 echo 11/21/10 04/07/2014 2:59pm Height 70 inches 5'10" Weight 219.00 lb Heart Rate 68 /min 72 BP Systolic Sitting 142 mmHg left arm, large cuff BP Diastolic Sitting 90 mmHg left arm, large cuff BP Systolic Standing 136 mmHg left arm, large cuff BP Diastolic Standing 86 mmHg left arm, large cuff Respiratory Rate 20 /min BMI (Body Mass Index) 31.4 kg/m2 09/10/2013 3:59pm Height 70 inches 5'10" Weight 217.00 lb Heart Rate 56 /min 80 BP Systolic Sitting 114 mmHg left arm, large cuff BP Diastolic Sitting 76 mmHg left arm, large cuff BP Systolic Standing 102 mmHg left arm, large cuff BP Diastolic Standing 80 mmHg left arm, large cuff Respiratory Rate 20 /min BMI (Body Mass Index) 31.1 kg/m2 08/21/2013 3:03pm Height 70 inches 5'10" Weight 219.00 lb Heart Rate 70 /min 78 BP Systolic Sitting 102 mmHg left arm, large cuff BP Diastolic Sitting 70 mmHg left arm, large cuff BP Systolic Standing 102 mmHg left arm, large cuff BP Diastolic Standing 72 mmHg left arm, large cuff Respiratory Rate 20 /min BMI (Body Mass Index) 31.4 kg/m2 02/13/2013 3:32pm Height 68.5 inches 5'8.50" Weight 216.00 lb Heart Rate 6880 /min BP Systolic Sitting 122 mmHg right arm, reg cuff BP Diastolic Sitting 80 mmHg right arm, reg cuff BP Systolic Standing 116 mmHg right arm, reg cuff BP Diastolic Standing 78 mmHg right arm, reg cuff Respiratory Rate 16 /min BMI (Body Mass Index) 32.4 kg/m2 Results Test Date Facility Test Result H/L Range Note Laboratory test 12/02/2014 [facility] PSA Diagnostic 1.234 ng/ mL N 0-4.0 1 finding [address] [place] [address] [phone] Lipid Profile 12/02/2014 [facility] Triglycerides 290 mg/dL N 2 (Trig/Chol/HDL) [address] [place] [address] [phone] Cholesterol 167 mg/dL N 3 HDL Cholesterol 39.6 mg/dL N 4 LDL Cholesterol 69 mg/dL N 5 Laboratory test finding 12/02/2014 [facility] Alt (SGPT) 38 U/L N 7-52 6 [address] [place] [address] [phone] Ast (Sgot) 33 U/L N 13-39 7 Lipid Profile 10/15/2014 [facility] Triglycerides 321 mg/dL N 8 (Trig/Chol/HDL) [address] [place] [address] [phone] Cholesterol 175 mg/dL N 9 HDL Cholesterol 38.1 mg/dL N 10 LDL Cholesterol 73 mg/dL N 11 Laboratory test finding 10/15/2014 [facility] Alt (SGPT) 29 U/L N 7-[address] [place] [address] [phone] Ast (Sgot) 24 U/L N 13-39 13 1 Serum levels of PSA measured using the [employer] DXI Hybritech immunoassay should not be interpreted as absolute evidence of the presence or absence of disease. The PSA value should be used in conjunction with other pertinent clinical diagnostic procedures. The values obtained with different assay methods or kits cannot be used interchangeably. 2 Desirable <150 Borderline high 150-199 High 200-499 Very High >500 3 Desirable <200 Borderline high 200-239 High >239 4 Low <40 Desirable: 40-60 High: >60 5 Desirable: <100 mg/dL Near Optimal: 100-129 mg/dL Borderline High: 130-159 mg/dL High: 160-189 mg/dL Very High: >189 mg/dL 6 FASTING to be done around 12/01/[address] Quintanilla 7 FASTING to be done around 12/01/[address] Quintanilla 8 Desirable <150 Borderline high 150-199 High 200-499 Very High >500 9 Desirable <200 Borderline high 200-239 High >239 10 Low <40 Desirable: 40-60 High: >60 11 Desirable: <100 mg/dL Near Optimal: 100-129 mg/dL Borderline High: 130-159 mg/dL High: 160-189 mg/dL Very High: >189 mg/dL 12 FASTING 13 FASTING Procedures Date Code Description Status 10/26/2018 64810 Holter Monitor Review (24 hr)dr review & interp only Completed 10/25/2018 00742 ECG Monitor/Recording W/Visual Superimposition Scanning Completed 10/16/2018 59829 EKG Tracing & Interpretation Completed 03/28/2018 18806 ECHO Transthoracic, Real-Time 2D With Doppler And Color Completed Flow 03/28/2018 31044 ECHO Transthoracic, Real-Time 2D With Doppler And Color Completed Flow 03/06/2018 59545 EKG Tracing & Interpretation Completed 02/08/2017 65900 EKG Tracing & Interpretation Completed 01/05/2017 09644 Treadmill Interp/Report Only Completed 01/05/2017 10459 Stress Test Supervsn W/Out I/R Completed 09/22/2015 64761 EKG Tracing & Interpretation Completed 12/23/2014 10590 Stress Test Supervsn W/Out I/R Completed 12/23/2014 79893 Treadmill Interp/Report Only Completed 10/06/2014 07387 EKG Tracing & Interpretation Completed 04/07/2014 14869 EKG Tracing & Interpretation Completed 09/04/2013 87292 Holter Monitor Review (24 hr)dr review & interp only Completed 08/21/2013 82322 EKG Tracing & Interpretation Completed 02/13/2013 36489 EKG Tracing & Interpretation Completed 08/08/2012 33315 EKG Tracing & Interpretation Completed 12/27/2011 85956 Myocardial Perfusion Imaging Tomographic (Spect) Multiple Completed Studies 12/24/2011 65719 Treadmill Interp/Report Only Completed 12/24/2011 81564 Stress Test Supervsn W/Out I/R Completed 12/24/2011 52541 EKG, Interpretation Only Completed Encounters Type Date Location Provider Dx Diagnosis Office Visit 10/16/2018 [facility] Shalini Lynn I25.5 Ischemic 3:00p Laila Rodriguez cardiomyopathy I10 Essential (primary) hypertension I25.10 Athscl heart disease of [place] coronary artery w/o ang pctrs I25.2 Old myocardial infarction E78.5 Hyperlipidemia, unspecified E66.9 Obesity, unspecified I77.819 Aortic ectasia, unspecified site R42 Dizziness and giddiness I49.3 Ventricular premature depolarization Office Visit 03/06/2018 Amelie Lynn E78.5 Hyperlipidemia, 2:00p Cardiology Becky Rodriguez M.D. unspecified Reinstatement Clerk I10 Essential (primary) hypertension I25.10 Athscl heart disease of [place] coronary artery w/o ang pctrs I25.2 Old myocardial infarction I25.5 Ischemic cardiomyopathy I25.9 Chronic ischemic heart disease, unspecified E66.9 Obesity, unspecified R94.31 Abnormal electrocardiogram [ECG] [EKG] I49.3 Ventricular premature depolarization Office Visit 02/08/2017 Amelie Shin E78.5 Hyperlipidemia, 1:40p Cardiology Becky Ulloa, FACC, unspecified Reinstatement Clerk AT [facility] I10 Essential (primary) hypertension I25.10 Athscl heart disease of [place] coronary artery w/o ang pctrs I25.2 Old myocardial infarction Office Visit 01/05/2017 [facility] R07.9 Chest pain, 10:13a Assoc,celi Mcmillan, [employer] LOUN[employer] ATTENDANT unspecified Hospitalists E78.5 Hyperlipidemia, unspecified I10 Essential (primary) hypertension Z86.79 Personal history of other diseases of the circulatory system Office Visit 01/04/2017 [facility] R07.9 Chest pain, 10:13a Assoc,celi Mcmillan, [employer] LOUN[employer] ATTENDANT unspecified Hospitalists E78.5 Hyperlipidemia, unspecified I10 Essential (primary) hypertension Z86.79 Personal history of other diseases of the circulatory system Office Visit 09/22/2015 4:00p [facility] Reji Shin, I10 Essential (primary) Of Reinstatement Clerk AT [facility], [facility], hypertension FSC[facility] I25.9 Chronic ischemic heart disease, unspecified E78.5 Hyperlipidemia, unspecified E66.9 Obesity, unspecified Office Visit 03/10/2015 3:00p [facility] Reji Shin, I10 Essential (primary) Of Reinstatement Clerk AT [facility], [facility], hypertension FSCAI I25.9 Chronic ischemic heart disease, unspecified E78.5 Hyperlipidemia, unspecified E66.9 Obesity, unspecified Office Visit 12/23/2014 3:00p [facility] Reji Shin, 401.1 Hypertension Of Reinstatement Clerk AT [facility], [facility], Benign FSCAI 414.9 Ischemic Heart Disease Chronic Unspec 272.4 Hyperlipidemia Other Unspec 786.50 Pain Chest Unspec Office Visit 12/22/2014 10:00a [facility] Nurse Visit 401.1 Hypertension Benign Of Reinstatement Clerk AT [facility] IC Office Visit 10/13/2014 11:45a [facility] Nurse Visit 401.1 Hypertension Benign Of [facility] IC Office Visit 10/06/2014 2:40p [facility] Reji Shin, 414.9 Ischemic Heart Of Reinstatement Clerk AT [facility], [facility], Disease Chronic FSCAI Unspec 272.4 Hyperlipidemia Other Unspec 401.1 Hypertension Benign 427.69 Premature Beats Other Office Visit 04/07/2014 3:00p [facility] Reji Shin, 414.9 Ischemic Heart Of Reinstatement Clerk AT [facility], [facility], Disease Chronic FSCAI Unspec 272.4 Hyperlipidemia Other Unspec 401.1 Hypertension Benign 427.69 Premature Beats Other Office Visit 09/10/2013 3:30p [facility] Reji Shin, 414.9 Ischemic Heart Of Reinstatement Clerk AT [facility], [facility], Disease Chronic FSCAI Unspec 272.4 Hyperlipidemia Other Unspec 401.1 Hypertension Benign 427.69 Premature Beats Other Office Visit 08/21/2013 3:00p [facility] Reji Shin, 414.9 Ischemic Heart Of Reinstatement Clerk AT [facility], Disease Chronic FSCAI Unspec 272.4 Hyperlipidemia Other Unspec 401.1 Hypertension Benign 427.69 Premature Beats Other Office Visit 02/13/2013 3:30p [facility] Reji Shin, 414.9 Ischemic Heart Of Reinstatement Clerk AT [facility], Disease Chronic FSCAI Unspec 272.4 Hyperlipidemia Other Unspec 401.1 Hypertension Benign Office Visit 08/08/2012 3:30p [facility] Reji Shin, 414.9 Ischemic Heart Of Reinstatement Clerk AT [facility], Disease Chronic FSCAI Unspec 272.4 Hyperlipidemia Other Unspec 458.9 Hypotension Unspec Office Visit 01/30/2012 10:15a [facility] Reji Shin, 414.9 Ischemic Heart Of Reinstatement Clerk AT [facility], Disease Chronic FSCAI Unspec 272.4 Hyperlipidemia Other Unspec Office Visit 12/24/2011 12:32p [facility] Dorothy 786.50 Pain Chest Assoc,celi Andres D.O. Unspec Hospitalists 414.00 Coronary Atherosclerosis Unspec Type Vessel Ewiiaapaayp/Graft 401.1 Hypertension Benign 272.4 Hyperlipidemia Other Unspec Office 12/24/2011 [place] Qutaybeh S. 794.31 Electrocardiogram Visit 9:22a Cardiology Laila Rodriguez (ECG) (EKG) Abnormal 414.01 Coronary Atherosclerosis Ewiiaapaayp 401.1 Hypertension Benign 786.50 Pain Chest Unspec 272.4 Hyperlipidemia Other Unspec Office Visit 12/23/2011 12:31p [facility] Reza Lewis, 786.50 Pain Chest Assoc,pc N.P. Unspec Hospitalists 414.00 Coronary Atherosclerosis Unspec Type Vessel Ewiiaapaayp/Graft 401.1 Hypertension Benign 272.4 Hyperlipidemia Other Unspec Office Visit 08/31/2009 12:15a [facility] Bruno Somers, 599.0 UTI Urinary Assoc,pc M.D. Tract Infection Hospitalists Site Not Spec 594.2 Calculus In Urethra 414.9 Ischemic Heart Disease Chronic Unspec 401.9 Hypertension Unspec 272.4 Hyperlipidemia Other Unspec Office Visit 08/30/2009 12:15a [facility] Bruno Somers, 599.0 UTI Urinary Assoc,pc M.D. Tract Infection Hospitalists Site Not Spec 594.2 Calculus In Urethra 414.9 Ischemic Heart Disease Chronic Unspec 401.9 Hypertension Unspec 790.99 Blood Examination Other Nonspecific Findings Office Visit 08/29/2009 12:15a [facility] Leonard Barrow, 599.0 UTI Urinary Assoc,pc D.O. Tract Infection Hospitalists Site Not Spec 790.7 Bacteremia 592.0 Calculus Of Kidney 414.9 Ischemic Heart Disease Chronic Unspec Office Visit 08/28/2009 [facility] Leonard Barrow, 995.90 Systemic 12:15a Assoc,pc D.O. Inflammatory Hospitalists Response Syndrome, Unspecified 287.5 Thrombocytopenia Unspec 785.0 Tachycardia Unspec 458.9 Hypotension Unspec 414.9 Ischemic Heart Disease Chronic Unspec 272.4 Hyperlipidemia Other Unspec Office Visit 08/28/2009 [facility] Laura Barajas, 780.60 Fever, 12:15a Assoc,pc M.DDajuan Unspecified Hospitalists Plan of Treatment Future Appointment(s):01/28/2019 10:00 am - Shalini Rodriguez M.D. at [facility]12/12/2018 9:30 am - Shalini Rodriguez M.D. at [facility]11/30/2018 3:00 pm - [facility] Schedule at [facility]2018 - Lee Ann Osborn NDajuanP.I49.3 Ventricular premature depolarizationNew Orders: Stress Test, Exercise Nuclear, Scheduled: 12/12/18Follow up:move up echocardiogram to when [facility] back from vacation f/u [facility] after testing.Recommendations:Extra beats are 11,000 increased from 6000 on previous holter 4 years agoI25.5 Ischemic [id number] Essential (primary) rudsrgpcivzfR31.10 Atherosclerotic heart disease of [place] coronary artery withI25.2 Old myocardial zqgacbxwomL97.5 Hyperlipidemia, unspecified
--- OUTSIDE RECORDS SUMMARY | 2018-11-05 09:56 | XMS REPORT | Continuity of Care Document ---
:1945 External Reference #:[id number] Author Name Lee Ann Hernandez Care Team Providers Name Role Phone Scotty Quintanilla MD Primary Care Physician Unavailable Payers Date Identification Numbers Payment Provider Subscriber Effective: 2016 Policy Number: [id number] [employer] Misael Vasquez PayID: [id number] [address] [place] [address] Problems Active Problems Provider Date Chronic ischemic heart disease Reji Shin M.D., [facility], [facility] Onset: 2012 Hyperlipidemia Reji Shin M.D., [facility], [facility] Onset: 02/13/2013 Benign essential hypertension Reji Shin M.D., [facility], [facility] Onset: 2012 Premature beats Reji Shin M.D., [facility], [facility] Onset: 08/21/2013 Chest pain Reji Shin M.D., [facility], [facility] Onset: 12/23/2014 Essential hypertension Reji Shin M.D., [facility], [facility] Onset: 03/10/2015 Obesity Reji Shin M.D., [facility], [facility] Onset: 03/10/2015 Chronic ischemic heart disease, Reji Shin M.D., [facility], [facility] Onset: 2014 unspecified Atherosclerotic heart disease of Reji Shin M.D., [facility], [facility] Onset: 2016 douglas coronary artery without angina pectoris Family History Date Family Member(s) Observation Comments Father Asthma Father due to [place] () - at age 86 Mother Hypercholesterolemia Mother due to [place] () - at age 91 Siblings 4 Social History Type Date Description Comments Sex Unknown Marital Status Lives With Spouse Occupation Retired ETOH Use Denies alcohol use Tobacco Use Start: Unknown End: Patient is a former quit in 2000 Unknown smoker Recreational Drug Use Denies Drug Use Smoking Status Reviewed: 10/16/18 Patient is a former quit in 2000 [...] qd Reji Shin, 02/13/2013 81mg Tablets M.DDajuan, [facility], [facility] Lansoprazole 1 po qd 90caps Unknown [...] 180tabs Reji Shin, 04/07/2014 - ER morning M.Jennifer, [facility], 12/05/2014 50mg Tablets ER 24HR [facility] Metoprolol Succinate 1 and 1/2 tab by 150tabs Reji Shin, 08/08/2012 - ER mouth a day MDajuanDDajuan, [facility], 04/07/2014 50mg Tablets ER 24HR [facility] Clopidogrel 1 tab by mouth 90tabs Reji Shin, 05/08/2012 - 75mg every day M.DDajuan, [facility], 02/13/2013 Tablets FSCAI Co Q-10 1 po qd Unknown - 100mg Capsules 04/06/2014 Fish Oil 2 by mouth every Unknown - 1000mg day, depending on 03/05/2018 Capsules digestion Tamsulosin HCL 1 cap po daily Andres Curran, - 0.4mg 10/15/2018 Capsules Vital Signs Date Vital Result Comment 10/16/2018 2:45pm Height 70 inches 5'10" Weight [...] Result H/L Range Note Laboratory test 12/02/2014 [facility] PSA Diagnostic 1.234 ng/ mL N 0-4.0 1 finding [address] [place] [address] [phone] Lipid Profile 12/02/2014 [facility] Triglycerides 290 mg/dL N 2 (Trig/Chol/HDL) [address] [place] [address] [phone] Cholesterol 167 mg/dL N 3 HDL Cholesterol 39.6 mg/dL N 4 LDL Cholesterol 69 mg/dL N 5 Laboratory test finding 12/02/2014 [facility] Alt (SGPT) 38 U/L N 7-52 6 [address] [place] [address] [phone] Ast (Sgot) 33 U/L N 13-39 7 Lipid Profile 10/15/2014 [facility] Triglycerides 321 mg/dL N 8 (Trig/Chol/HDL) [address] [place] [address] [phone] Cholesterol 175 mg/dL N 9 HDL Cholesterol 38.1 mg/dL N 10 LDL Cholesterol 73 mg/dL N 11 Laboratory test finding 10/15/2014 [facility] Alt (SGPT) 29 U/L N 7-52 12 [address] [place] [address] [phone] Ast (Sgot) 24 U/L N 13-39 13 1 Serum levels of PSA measured using the Marla Dousman DXI Hybritech immunoassay should not be interpreted [...] 13 FASTING Procedures Date Code Description Status 10/16/2018 65841 EKG Tracing & Interpretation Completed 03/28/2018 36698 ECHO Transthoracic, Real-Time 2D With Doppler And Color Completed Flow 03/28/2018 23967 ECHO Transthoracic, Real-Time 2D With Doppler And Color Completed Flow 03/06/2018 58903 EKG Tracing & Interpretation Completed 02/08/2017 12090 EKG Tracing & Interpretation Completed 01/05/2017 97471 Treadmill Interp/Report Only Completed 01/05/2017 40226 Stress Test Supervsn W/Out I/R Completed 09/22/2015 33983 EKG Tracing & Interpretation Completed 12/23/2014 62934 Treadmill Interp/Report Only Completed 12/23/2014 84541 Stress Test Supervsn W/Out I/R Completed 10/06/2014 02160 EKG Tracing & Interpretation Completed 04/07/2014 49505 EKG Tracing & Interpretation Completed 09/04/2013 05162 Holter Monitor Review (24 hr)dr millan & interp only Completed 08/21/2013 22903 EKG Tracing & Interpretation Completed 02/13/2013 96519 EKG Tracing & Interpretation Completed 08/08/2012 77478 EKG Tracing & Interpretation Completed 12/27/2011 17538 Myocardial Perfusion Imaging Tomographic (Spect) Multiple Completed Studies 12/24/2011 77251 Treadmill Interp/Report Only Completed 12/24/2011 59730 Stress Test Supervsn W/Out I/R Completed 12/24/2011 34589 EKG, Interpretation Only Completed Encounters Type Date Location Provider Dx Diagnosis Office Visit 10/16/2018 [facility] Shalini S. I25.5 Ischemic 3:00p Laila Rodriguez cardiomyopathy I10 Essential (primary) hypertension I25.10 Athscl heart disease of douglas coronary artery w/o ang pctrs I25.2 Old myocardial infarction E78.5 Hyperlipidemia, unspecified E66.9 Obesity, unspecified I77.819 Aortic ectasia, unspecified site R42 Dizziness and giddiness Office Visit 03/06/2018 [place] Shalini Lynn E78.5 Hyperlipidemia, 2:00p Cardiology Becky Rodriguez M.D. unspecified Production Support Developer I10 Essential (primary) hypertension I25.10 Athscl heart disease of douglas coronary artery w/o ang pctrs I25.2 Old myocardial infarction I25.5 Ischemic cardiomyopathy I25.9 Chronic ischemic heart disease, unspecified E66.9 Obesity, unspecified R94.31 Abnormal electrocardiogram [ECG] [EKG] I49.3 Ventricular premature depolarization Office Visit 02/08/2017 Amelie Shin, E78.5 Hyperlipidemia, 1:40p Cardiology Becky Ulloa FACC, unspecified Production Support Developer AT [facility] I10 Essential (primary) hypertension I25.10 Athscl heart disease of douglas coronary artery w/o ang pctrs I25.2 Old myocardial infarction [facility]9 Chest pain, 10:13a Assceli olivares NP unspecified Hospitalists E78.5 Hyperlipidemia, unspecified I10 Essential (primary) hypertension Z86.79 Personal history of other diseases of the circulatory system [facility] R07.9 Chest pain, 10:13a Assocceli NP unspecified Hospitalists E78.5 Hyperlipidemia, unspecified I10 Essential (primary) hypertension Z86.79 Personal history of other diseases of the circulatory system Office Visit 09/22/2015 4:00p [facility] Reji Shin, I10 Essential (primary) Of Production Support Developer AT [facility], [facility], hypertension FSCAI I25.9 Chronic ischemic heart disease, unspecified E78.5 Hyperlipidemia, unspecified E66.9 Obesity, unspecified Office Visit 03/10/2015 3:00p [facility] Reji Shin, I10 Essential (primary) Of Production Support Developer AT [facility], [facility], hypertension FSCAI I25.9 Chronic ischemic heart disease, unspecified E78.5 Hyperlipidemia, unspecified E66.9 Obesity, unspecified Office Visit 12/23/2014 3:00p [facility] Reji Shin, 401.1 Hypertension Of Production Support Developer AT [facility], [facility], Benign FSCAI 414.9 Ischemic Heart Disease Chronic Unspec 272.4 Hyperlipidemia Other Unspec 786.50 Pain Chest Unspec Office Visit 12/22/2014 10:00a [facility] Nurse Visit 401.1 Hypertension Benign Of Production Support Developer AT [facility] IC Office Visit 10/13/2014 11:45a [facility] Nurse Visit 401.1 Hypertension Benign Of [facility] IC Office Visit 10/06/2014 2:40p [facility] Reji Shin, 414.9 Ischemic Heart Of Production Support Developer AT [facility], Disease Chronic FSCAI Unspec 272.4 Hyperlipidemia Other Unspec 401.1 Hypertension Benign 427.69 Premature Beats Other Office Visit 04/07/2014 3:00p [facility] Reji Shin, 414.9 Ischemic Heart Of Production Support Developer AT [facility], Disease Chronic FSCAI Unspec 272.4 Hyperlipidemia Other Unspec 401.1 Hypertension Benign 427.69 Premature Beats Other Office Visit 09/10/2013 3:30p [facility] Reji Shin 414.9 Ischemic Heart Of Production Support Developer AT [facility], Disease Chronic FSCAI Unspec 272.4 Hyperlipidemia Other Unspec 401.1 Hypertension Benign 427.69 Premature Beats Other Office Visit 08/21/2013 3:00p [facility] Reji Shin, 414.9 Ischemic Heart Of Production Support Developer AT [facility], [facility], Disease Chronic FSCAI Unspec 272.4 Hyperlipidemia Other Unspec 401.1 Hypertension Benign 427.69 Premature Beats Other Office Visit 02/13/2013 3:30p [facility] Reji Shin, 414.9 Ischemic Heart Of Production Support Developer AT [facility].D, [facility], Disease Chronic FSCAI Unspec 272.4 Hyperlipidemia Other Unspec 401.1 Hypertension Benign Office Visit 08/08/2012 3:30p [facility] Reji Shin, 414.9 Ischemic Heart Of Production Support Developer AT [facility].D., [facility], Disease Chronic FSCAI Unspec 272.4 Hyperlipidemia Other Unspec 458.9 Hypotension Unspec Office Visit 01/30/2012 10:15a [facility] Reji Shin, 414.9 Ischemic Heart Of Production Support Developer AT [facility].D., [facility], Disease Chronic FSCAI Unspec 272.4 Hyperlipidemia Other Unspec Office Visit 12/24/2011 12:32p [facility] Dorothy 786.50 Pain Chest Assoc,pc Dmitry, D.Javy. Unspec Hospitalists 414.00 Coronary Atherosclerosis Unspec Type Vessel [place]/Graft 401.1 Hypertension Benign 272.4 Hyperlipidemia Other Unspec Office 12/24/2011 [place] Qutaybeh S. 794.31 Electrocardiogram Visit 9:22a Cardiology Laila Rodriguez (ECG) (EKG) Abnormal 414.01 Coronary Atherosclerosis [place] 401.1 Hypertension Benign 786.50 Pain Chest Unspec 272.4 Hyperlipidemia Other Unspec Office Visit 12/23/2011 12:31p [facility] Reza Lewis, 786.50 Pain Chest Assoc,pc N.P. Unspec Hospitalists 414.00 Coronary Atherosclerosis Unspec Type Vessel [place]/Graft 401.1 Hypertension Benign 272.4 Hyperlipidemia Other Unspec Office Visit 08/31/2009 12:15a [facility] Bruno Somers, 599.0 UTI Urinary Assoc,celi Ulloa Tract Infection Hospitalists Site Not Spec 594.2 Calculus In Urethra 414.9 Ischemic Heart Disease Chronic Unspec 401.9 Hypertension Unspec 272.4 Hyperlipidemia Other Unspec Office Visit 08/30/2009 12:15a [facility] Bruno Somers, 599.0 UTI Urinary Assoc,pc Laila Tract Infection Hospitalists Site Not Spec 594.2 Calculus In Urethra 414.9 Ischemic Heart Disease Chronic Unspec 401.9 Hypertension Unspec 790.99 Blood Examination Other Nonspecific Findings Office Visit 08/29/2009 12:15a [facility] Leonard Barrow, 599.0 UTI Urinary Assoc,pc D.O. Tract Infection Hospitalists Site Not Spec 790.7 Bacteremia 592.0 Calculus Of Kidney 414.9 Ischemic Heart Disease Chronic Unspec Office Visit 08/28/2009 [facility] Leonard Barrow, 995.90 Systemic 12:15a celi HuertaO. Inflammatory Hospitalists Response Syndrome, Unspecified 287.5 Thrombocytopenia Unspec 785.0 Tachycardia Unspec 458.9 Hypotension Unspec 414.9 Ischemic Heart Disease Chronic Unspec 272.4 Hyperlipidemia Other Unspec Office Visit 08/28/2009 [facility] Lauradaniela Barajas, 780.60 Fever, 12:15a celi Huerta M.D. Unspecified Hospitalists Plan of Treatment Future Appointment(s):10/26/2018 11:00 am - Nurse Visit IC at [facility] [facility]10/25/2018 11:30 am - Nurse Visit IC at [facility]2018 - Shalini Rodriguez M.D.I25.5 Ischemic cardiomyopathyFollow up:8 months ovI10 Essential (primary) ljbsbgtnrrfqJ65.10 Atherosclerotic heart disease of douglas coronary artery withI25.2 Old myocardial nizjheqeoxF33.5 Hyperlipidemia, mxeybekycxvL34.9 Obesity, ffyeqjnpuleQ66.819 Aortic ectasia, unspecified siteNew Orders:Echocardiogram, Ordered: 10/16/18R42 Dizziness and giddinessNew Orders:24 hour holter monitor, Ordered: 10/16/18
[2018-11-05] MEDS ORDERED: Perflutren Lipid Microsphere* 3 ML VIAL ONE (11:51)
--- NOTE | 2018-11-05 15:36 | ECHO ---
*[facility]* [place] [address] Fax #: [phone] Transthoracic Echocardiogram Patient: Misael Vasquez : 1945 Study Date: 11/05/2018 Age: 73 Gender: M HR: 51 bpm Height: 70 in /177.8 cm BSA: 2.14 m^2 Weight: 212.6 lb /96.6 kg BMI: 30.6 kg/m^2 *Mobile Nurse: * Meredith Roque [facility] *Referring Physician: * Dorothy AndresReading Physician: * Dennis Garcia MD Indications: Abnormal EKG. History: Coronary artery disease. PMH: Myocardial infarction. Risk factors: Dyslipidemia. Labs, prior tests, procedures, and surgery: Catheterization. There was a stenosis which was treated with a stent. Conclusions Summary: - Left ventricle: Systolic function is moderately reduced. The estimated ejection fraction is 30-35%. Moderate diffuse hypokinesis. - Mitral valve: There is no evidence of stenosis. There is trace to mild regurgitation. - Aortic valve: There is no evidence of stenosis. There is no significant regurgitation. - Tricuspid valve: There is physiologic regurgitation. - Pericardium, extracardiac: There is no pericardial effusion. - Compared to study of 03/28/18, the left ventricle function is much lower. Valve structures are the same. Study data: Transthoracic echocardiogram. Procedure: Transthoracic echocardiography was performed. The study was technically limited due to poor acoustic window availability. Intravenous Definity , 3 mlswas administered. Image enhancement administered by Complete 2D, spectral Doppler, and color flow Doppler. Patient status: Inpatient. Patient room number: 453. Rhythm: Normal sinus rhythm with PVC's. Findings Left ventricle: The cavity size is normal. Wall thickness is normal. Systolic function is moderately reduced. The estimated ejection fraction is 30-35%. Moderate diffuse hypokinesis. Doppler parameters are consistent with abnormal left ventricular relaxation (grade 1 diastolic dysfunction). Right ventricle: Well visualized. The cavity size is normal. Wall thickness is normal. Systolic function is normal. The tricuspid jet envelope definition is inadequate for estimation of RV systolic pressure. There are no indirect findings (abnormal RV volume or geometry, altered pulmonary flow velocity profile, or leftward septal displacement) which would suggest moderate or severe pulmonary hypertension. Ventricular septum: Well visualized. Left atrium: Well visualized. The atrium is normal in size. Right atrium: Well visualized. The atrium is normal in size. Atrial septum: Well visualized. Mitral valve: Well visualized. The leaflets are normal thickness. No echocardiographic evidence for prolapse. There is no evidence of stenosis. There is trace to mild regurgitation. Aortic valve: Well visualized. The valve is trileaflet. The leaflets are normal thickness. Thickening, consistent with sclerosis. There is no evidence of stenosis. There is no significant regurgitation. Tricuspid valve: Well visualized. The leaflets are normal thickness. There is no evidence of stenosis. There is physiologic regurgitation. Pulmonic valve: Not well visualized. Aorta: The aorta is normal size. The aortic root appears normal. The aortic arch appears normal. Pericardium: There is no pericardial effusion. No evidence of pleural fluid accumulation. Pulmonary arteries: Not well visualized. Systemic veins: Not well visualized. Pulmonary veins: Visualization of the pulmonary venous anatomy is incomplete, but a significant abnormality is unlikely. Measurements Left ventricle Value Ref Right atrium Value Ref BETHANY, LAX 4.6 cm 4.2 - SI dim, ES 5.0 cm 3.4 - 5.3 5.8 ML dim, ES, A4C 3.3 cm 2.6 - 4.4 ESD, LAX 3.9 cm 2.5 - SI dim, ES, A4C 5.0 cm 3.4 - 5.3 4.0 SI dim/bsa, ES, A4C 2.4 cm/m^2 1.8 - 3.0 FS, LAX (L) 12 % 25 - 43 PW, ED, LAX (H) 1.2 cm 0.6 - Aortic valve Value Ref 1.0 Peak v, S 1.75 m/sec --------- FS (L) 12 % 25 - 43 VTI, S 34.0 cm --------- PW, ED (H) 1.2 cm 0.6 - Mean grad, S 6.0 mm Hg --------- 1.0 Peak grad, S 12.0 mm Hg --------- PW/ID, ED 0.26 ------- LVOT/AV, VTI ratio 0.56 --------- E', lat [place], TDI 12.7 cm/sec >=10.0 GARRETT, VTI 1.75 cm^2 - -------- E/e', [place], TDI 5 ------- GARRETT, Vmax 1.62 cm^2 ---- ----- E', med alta, TDI (L) 5.6 cm/sec >=7.0 E/e', med alta, TDI 12 ------- Mitral valve Value Ref E', avg, TDI 9.2 cm/sec ------- Peak E 0.69 m/sec ---- ----- E/e', avg, TDI 8 <=14 Peak A 0.89 m/sec - -------- PHT 54 ms --------- LVOT Value Ref Peak E/A ratio 0.8 --------- Diam, S 2.00 cm ------- MVA, PHT 4.1 cm^2 --------- Area 3.1 cm^2 ------- Peak kamlesh, S 0.9 m/sec ------- Pulmonic valve Value Ref VTI, S 19.0 cm ------- Peak v, S 0.91 m/sec --------- Mean grad, S 1 mm Hg ------- Peak grad, S 3.0 mm Hg --------- SV 60 ml ------- SV/bsa 28 ml/m^2 ------- Aortic root Value Ref Root diam 2.8 cm <4.2 Ventricular septum Value Ref IVS, ED 0.9 cm 0.6 - Aortic arch Value Ref 1.0 Arch diam 2.8 cm --------- Right ventricle Value Ref Decending aorta Value Ref BETHANY, LAX 2.7 cm ------- Rhianna peak kamlesh 0.54 m/sec --------- BETHANY minor ax, A4C 3.4 cm 1.9 - mid 3.5 Left atrium Value Ref ML dim, A4C 3.7 cm ------- SI dim, A4C 5.8 cm ------- Legend: (L) and (H) modesta values outside specified reference range. Prepared and electronically signed by Dennis Garcia MD 11/05/2018 15:36
[2018-11-05] MEDS ORDERED: amLODIPine TAB* 5 MG PO SCH (18:00)
--- NOTE | 2018-11-05 18:30 | HP ---
CC: Dr. Quintanilla * HISTORY AND PHYSICAL: DATE OF ADMISSION: 11/05/18 PRIMARY CARE PROVIDER: Dr. Quintanilla. TRUCK DRIVER SALESPERSON: Dr. Rodriguez. CHIEF COMPLAINT: Chest pain. HISTORY OF PRESENT ILLNESS: Mr. Vasquez is a 73-year-old male who has a history of coronary artery disease status post stenting x1 with subsequent in- stent restenosis requiring [id number] procedure, hypertension, hyperlipidemia, and BPH who presented to the emergency room with complaints of intermittent chest pain and generalized malaise over the last 2 days. The patient states that he woke up Monday morning and felt as if he had been run over by a truck. He also had associated tightness across the chest along with a slight ache and tingling in his left arm. He did not seek evaluation initially. 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 This did not seem to make the pain worse, but the pain did continue to come and go throughout the day. By evening time, he was feeling somewhat better. The following day, which was the day prior to admission, he again woke up feeling really lousy. He had more chest discomfort on Monday than he did on Monday. The patient states that he also has had increased restlessness and anxiety and this reminded him of when he had his prior MIs. The patient had no associated shortness of breath or nausea. He woke up today, the day of admission, feeling exactly the same and therefore decided to present to the emergency room for evaluation. Of note, the patient was seen in Dr. Rodriguez's office by Lee Ann Osborn NP, on 11/01/18. He had had an episode of severe dizziness 3 weeks prior and a Holter monitor was obtained. The visit on 11/01/18 was to review the Holter monitor results. It was noted that the patient was having very frequent PVCs and therefore, an ischemic workup was planned. The patient was to have a transthoracic echocardiogram and stress test next month. PAST MEDICAL HISTORY: 1. Coronary artery disease. 2. Hypertension. 3. Hyperlipidemia. 4. BPH. 5. History of nephrolithiasis. 6. Gout. PAST SURGICAL HISTORY: 1. Cardiac cath x2. 2. Cystoscopy. MEDICATIONS: 1. Zetia 10 mg p.o. at bedtime. 2. FiberCon 1250 mg p.o. daily. 3. Aspirin 81 mg p.o. daily. 4. Allopurinol 300 mg p.o. daily. 5. Amlodipine 10 mg p.o. at bedtime. 6. Crestor 5 mg p.o. every other day. 7. Quinapril 40 mg p.o. daily. 8. Metoprolol XL 100 mg p.o. daily. 9. Lansoprazole 30 mg p.o. daily. ALLERGIES: STATIN, NIACIN, FISH OIL, and TAPE. FAMILY HISTORY: Mom at the age of 91 of an KS. Dad in his 80s of an KS. SOCIAL HISTORY: The patient is a former smoker. He quit 18 years ago. He has a [id number] history of smoking. He does not drink alcohol. 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 He is . He has 3 children. His is his healthcare proxy. REVIEW OF SYSTEMS: A complete 11-system review of systems is obtained. Pertinent positives and negatives are as per HPI and otherwise negative. PHYSICAL EXAMINATION GENERAL: The patient is a well-developed elderly male, seen sitting up on the stretcher, in no acute distress. VITAL SIGNS: Blood pressure 119/65, pulse 61, respirations 20, temp 97.6, O2 sat 99% on room air. HEENT: Pupils are equal and round. Extraocular muscles are intact. Oropharynx is clear. Oral mucosa is moist. There is no submandibular, cervical or supraclavicular adenopathy. PULMONARY: Lungs are clear to auscultation bilaterally. CARDIAC: Normal S1, S2. Regular rate and rhythm. I do not appreciate any murmurs. There is no lower extremity edema. ABDOMEN: Bowel sounds present. Abdomen is soft, nontender, nondistended. MUSCULOSKELETAL: There is no cyanosis or clubbing of the digits. There is full active range of motion of all 4 extremities. NEURO: Cranial nerves II through XII are grossly intact. Sensation is intact to light touch throughout. Strength is 5/5 and symmetric to both upper and lower extremities bilaterally. PSYCH: The patient is alert. He is oriented x3. Affect appears appropriate. SKIN: Warm and dry. There are no rashes. DIAGNOSTIC STUDIES/LAB DATA: Labs: WBC 8.2, hemoglobin 15.5, hematocrit 43, platelets 171. INR 1.06. Sodium 137, potassium 4.0, chloride 105, CO2 of 23, BUN 20, creatinine 1.03, glucose 123, calcium 9.4. Bilirubin 0.6, AST 24, ALT 29, alk phos 65. Troponin 0. Albumin 4.4. EKG reveals normal sinus rhythm with a probable inferior infarct. Chest x-ray: No active cardiopulmonary disease. ASSESSMENT AND PLAN: Mr. Vasquez is a 73-year-old male who has a history of coronary artery disease, hypertension, hyperlipidemia, and BPH who presented to the emergency room today with complaints of chest pain. 1. Chest pain. At this point, given the patient's risk factors, I do feel that the patient should be admitted and ruled out for an acute coronary artery syndrome, though it seems unlikely given the duration of his symptoms that he is having an active KS at this time. The patient will have serial troponins and EKGs and then have an exercise nuclear stress test tomorrow. 2. Fatigue/malaise. This is an overwhelming symptom that the patient describes. The etiology is unclear. He does spend a significant amount of time outside. Therefore, I will send off the Lyme serology. Additionally, I will order transthoracic echocardiogram to see if his ejection fraction has remained stable or if there are any wall motion abnormalities. 3. Hypertension. BP is under excellent control. We will continue home medication regimen. 4. Hyperlipidemia. Continue every other day statin. 5. Gout. Continue allopurinol. 6. Gastroesophageal reflux disease. Continue lansoprazole or auto substitution. 7. DVT prophylaxis. According to the Adult Thrombosis Prophylaxis Risk Factor Assessment Guide, the patient has a total risk factor score of 3, making him high risk. Lovenox 40 mg subcutaneous daily will be utilized as DVT prophylaxis. 8. Code status is full. TIME SPENT: Fifty-five minutes were spent admitting this patient. [id number]/[facility] #: [id number] MTDD
[2018-11-05 18:52] LABS: Magnesium 2.1 mg/dL (1.9-2.7)
[2018-11-05] MEDS: amLODIPine TAB* 5 MG PO SCH (20:01)
[2018-11-05] MEDS: Enoxaparin(*) 40 MG/0.4 ML SYR SUBCUT SCH (20:01)
[2018-11-05] MEDS: Ezetimibe TAB* 10 MG PO SCH (20:24)
[2018-11-06] MEDS ORDERED: Regadenoson* 0.4 MG/5 ML SYRINGE ONE (07:55)
[2018-11-06] MEDS ORDERED: Metoprolol Succinate XL TAB* 100 MG PO SCH (09:00)
[2018-11-06] MEDS: amLODIPine TAB* 5 MG PO SCH ×2 (10:17→20:33)
[2018-11-06] MEDS: Lisinopril TAB* 10 MG PO SCH (10:18)
[2018-11-06] MEDS: Pantoprazole TAB * 40 MG TAB PO SCH (10:18)
[2018-11-06] MEDS: Allopurinol TAB* 300 MG PO SCH (10:18)
[2018-11-06] MEDS: Calcium Polycarbophil TAB* 625 MG PO SCH (10:19)
[2018-11-06] MEDS: Aspirin 81 mg CHEW TAB* 81 MG TAB.CHEW PO SCH (10:19)
[2018-11-06] MEDS ORDERED: Diazepam TAB(*) 5 MG PO PRN (12:16)
[2018-11-06] MEDS ORDERED: diPHENhydraMINE PO* 25 MG PO PRN (12:16)
[2018-11-06] MEDS ORDERED: NS 0.9% 1000 ML** 1,000 ML IV SCH (12:30)
[2018-11-06] MEDS ORDERED: Midazolam* 1 MG/ML 5 ML VIAL (5 MG) ONE (13:13)
[2018-11-06] MEDS ORDERED: fentaNYL* 50 MCG/ML 2 ML VIAL (100 MCG VIAL) ONE (13:13)
[2018-11-06] MEDS ORDERED: nitroGLYCERIN DRIP* 25,000 MCG/250 ML BTL ONE (13:14)
[2018-11-06] MEDS ORDERED: Heparin(*) 1000 UNIT/ML 10 ML VIAL CATH LAB IV ONE (13:14)
[2018-11-06] MEDS ORDERED: VERAPAMIL 2.5 MG/ML 2 ML VIAL ** 5 mg/2 ml ONE (13:14)
[2018-11-06] MEDS ORDERED: Lidocaine 1% INJ* 10 MG/ML 30 ML SDV ONE (13:14)
[2018-11-06] MEDS ORDERED: Heparin 2 UNITS/ML IVPREMIX* 3,000 UNIT/1,500 ML BAG IV ONE (13:14)
[2018-11-06] MEDS ORDERED: Iohexol 350 (CONTRAST) 200 ML MDV IV ONE (13:15)
[2018-11-06] MEDS: Ezetimibe TAB* 10 MG PO SCH (17:02)
--- NOTE | 2018-11-06 18:17 | PN ---
Subjective Date of Service: 11/06/18 Interval History: Pt resting in bed on assessment. Reports he feels well today. Does not feel like he "got hit by a truck" like he did prior to admission. Denies chest pain or pressure. Denies numbness/tingling in left arm that he had previously. Denies sob, nausea, vomiting. Objective Active Medications: Allopurinol (Zyloprim Tab*) 300 mg PO DAILY [facility] Last Admin: 11/06/18 10:18 Dose: 300 mg Amlodipine Besylate (Norvasc Tab*) 5 mg PO BID [facility] Last Admin: 11/06/18 10:17 Dose: 5 mg Aspirin (Aspirin 81 Mg Chew Tab*) 81 mg PO DAILY [facility] Last Admin: 11/06/18 10:19 Dose: 81 mg Calcium Polycarbophil (Fibercon Tab*) 1,250 mg PO DAILY [facility] Last Admin: 11/06/18 10:19 Dose: 1,250 mg Ezetimibe (Zetia Tab*) 10 mg PO QPM [facility] Last Admin: 11/06/18 17:02 Dose: 10 mg Enoxaparin Sodium (Lovenox(*)) 40 mg SUBCUT Q24H [facility] Last Admin: 11/05/18 20:01 Dose: 40 mg Lisinopril (Prinivil Tab*) 40 mg PO DAILY [facility] Last Admin: 11/06/18 10:18 Dose: 40 mg Metoprolol Succinate (Toprol Xl Tab*) 100 mg PO DAILY [facility] Last Admin: 11/06/18 10:17 Dose: 100 mg Pantoprazole Sodium (Protonix Tab*) 40 mg PO DAILY [facility] Last Admin: 11/06/18 10:18 Dose: 40 mg Rosuvastatin Calcium (Crestor (Nf)) 5 mg PO EVERY OTHER DAY [facility] Vital Signs - 8 hr 11/06/18 11/06/18 11/06/18 11:08 14:27 14:28 Temperature 97.8 F Pulse Rate 64 63 66 Respiratory 16 13 Rate Blood Pressure 113/69 129/78 (mmHg) O2 Sat by Pulse 96 97 96 Oximetry 11/06/18 11/06/18 11/06/18 14:33 14:53 15:01 Temperature Pulse Rate 58 57 70 Respiratory 15 15 21 Rate Blood Pressure 123/68 113/63 (mmHg) O2 Sat by Pulse 95 91 92 Oximetry 11/06/18 11/06/18 11/06/18 15:08 15:15 15:23 Temperature 97.6 F Pulse Rate 64 53 Respiratory 17 20 Rate Blood Pressure 124/77 127/70 (mmHg) O2 Sat by Pulse 94 94 Oximetry 11/06/18 11/06/18 11/06/18 15:38 15:53 15:59 Temperature Pulse Rate 59 61 Respiratory 18 19 Rate Blood Pressure 117/71 85/61 95/60 (mmHg) O2 Sat by Pulse 94 94 Oximetry 11/06/18 11/06/18 11/06/18 16:00 16:04 16:07 Temperature Pulse Rate 64 65 Respiratory 17 18 Rate Blood Pressure 96/64 109/69 (mmHg) O2 Sat by Pulse 94 96 Oximetry 11/06/18 11/06/18 11/06/18 16:08 16:23 16:53 Temperature 97.6 F Pulse Rate 71 72 66 Respiratory 19 16 18 Rate Blood Pressure 116/69 112/75 112/60 (mmHg) O2 Sat by Pulse 96 97 98 Oximetry Oxygen Devices in Use Now: None Appearance: Comfortable, NAD Eyes: No Scleral Icterus Ears/Nose/Mouth/Throat: Clear Oropharnyx, Mucous Membranes Moist Neck: NL Appearance and Movements; NL JVP Respiratory: Symmetrical Chest Expansion and Respiratory Effort, Clear to Auscultation Cardiovascular: NL Sounds; No Murmurs; No JVD, RRR, No Edema Abdominal: NL Sounds; No Tenderness; No Distention Lymphatic: No Cervical Adenopathy Extremities: No Edema Skin: No Rash or Ulcers Neurological: Alert and Oriented x 3 Nutrition: Taking PO's Result Diagrams: 11/05/18 09:28 11/05/18 09:28 Additional Lab and Data: Laboratory Results - last 24 hr 11/05/18 16:35 Magnesium 2.1 Troponin I 0.00 Microbiology and Other Data: . Assess/Plan/Problems-Billing Assessment: 73 yr old male with pmh of cad s/p stent x1, instent restenosis, htn, hld, bph; who presented to ED with chest pain and general malaise - Patient Problems (1) Chest pain Comment: - Chest pain free - Troponin 0.00 x3 - Nuclear revealed Intermediate risk - Cardiac cath revealed RCA stent wide open with min distal disease, prox LAD approx and circ no disease - Work up also revealed reduce EF which is lower from previous work up in Mar 2018. (2) Arrhythmia Comment: - Patient noted to have PVCs and Trigeminy. - Discussed with cardiology who recommends outpatient EP study - Nurse called this evening due to more sustaine bradycardia compared to earier. Repeat EKG ordered (3) BPH (benign prostatic hyperplasia) Comment: - Continue tamsulosin (4) CAD (coronary artery disease) Comment: - See "Chest Pain" above - Continue ASA, Zetia, Crestor, lisinopril and metoprolol (5) Gout Comment: - Continue allopurinol (6) HTN (hypertension) Comment: - Normotensive - Continue Norvasc, metoprolol, lisinopril (7) Full code status Attending: Cristian Dos Santos
--- NOTE | 2018-11-06 19:04 | CONS ---
CC: Dr. Rodriguez; Dr. Shin * CARDIOLOGY CONSULTATION: DATE OF CONSULT: 11/06/18 INDICATION FOR CONSULTATION: Coronary artery disease, LV dysfunction, chest pain. HISTORY OF PRESENT ILLNESS: The patient is a 73-year-old gentleman with a history of coronary artery disease, history of stenting to his right coronary artery in 2000 with a repeat stenting in 2010. The patient was recently seen by Lee Ann Osborn NP in our office for follow up of his Holter monitor. The patient was having episodes of dizziness. A Holter monitor showed, the patient was in normal sinus rhythm, but had a significant increase in the number of PVCs. He had 12,000 PVCs. The patient was scheduled for an outpatient echocardiogram and stress test. This past weekend, the patient was admitted to the hospital with chest pain. The patient states that he was at home on Monday. He woke up in the morning, just not feeling right. He did not have any specific complaints. He just felt tired. He felt achy all over. He was outside and cleaning the breezeway between his house and his garage and again just felt uncomfortable. He did have some mild chest pain. He said it may be radiated down to his left arm. He was able to work through this discomfort. It was no more than 4/10 discomfort. He worked most of the day, slept poorly at night. The next morning , he continued to have chest discomfort and also felt achy allover and at that point decided to come to the emergency room. On arrival to the emergency room, his EKG showed no ischemic changes. His troponin levels were negative. Yesterday, the patient underwent an echocardiogram. His echocardiogram showed an ejection fraction of 30% to 35% global hypokinesis. No significant valvular abnormalities. Compared to an echocardiogram in March of 2018, this was a significant drop in his LV function and his previous LV function had been 45%. Today, the patient underwent a stress test. On his nuclear images, he had normal perfusion to his septum, anterior wall, and lateral wall. He had a fixed infarct to his inferior wall. This was unchanged from 2006. PAST MEDICAL HISTORY: Significant for coronary artery disease as described above. Again, he has had stenting to his right coronary artery both in 2000 and in 2010. History of hypertension, hyperlipidemia, BPH. PAST SURGICAL HISTORY: Cystoscopy, catheterization x2. OUTPATIENT MEDICATIONS: 1. Zetia 10 mg a day. 2. Aspirin 81 mg a day. 3. Allopurinol 300 mg a day. 4. Amlodipine 10 mg a day. 5. Crestor 5 mg a day. 6. Quinapril 40 mg a day. 7. Metoprolol XL 100 mg a day. 8. Lansoprazole 30 mg a day. ALLERGIES: STATIN, NIACIN, FISH OIL. FAMILY HISTORY: His mother at 91 of a myocardial infarction. Father at 80 of a myocardial infarction. SOCIAL HISTORY: He is a previous smoker. He quit 18 years ago. He denies alcohol use. 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 He is . REVIEW OF SYSTEMS: Negative for fevers and chills. Negative for changes in bowel or bladder habits. Negative for change in weight. Other 12-point review is unremarkable. PHYSICAL EXAMINATION: On physical exam, height is 5 feet 10 inches, weight 217 pounds. Temperature 97.6, heart rate is 66, blood pressure of 112/60, respiratory rate is 18, oxygen saturation 98% on room air. Sclerae anicteric. Oropharynx is pink without erythema. Carotids are 2+ without bruits. JVD is normal. Thyroid is normal. Cardiac Exam: S1, S2 without any murmurs, rubs, or gallops. PMI is normal. Lungs are clear to auscultation bilaterally. No dullness to percussion. Abdomen is soft, nontender, nondistended with normoactive bowel sounds. Extremities showed no edema. He has 2+ pulses throughout. The patient is awake, alert, and oriented. He moves all 4 extremities equally. DIAGNOSTIC STUDIES/LAB STUDIES: CBC within normal limits. Chemistry is within normal limits. Troponin are negative x3. EKG demonstrated normal sinus rhythm, old inferior wall myocardial infarction unchanged from previous EKGs. The patient did ultimately undergo a cardiac catheterization. His cardiac catheterization showed a 40% stenosis to his LAD. Other arteries are without significant disease. His stent is patent. IMPRESSION: This is a 73-year-old gentleman who was admitted to the hospital with chest pain. His echocardiogram showed a significant decline in his LV function. His ejection fraction went from 45% in March of 2008 to 30% today. His stress test showed inferior infarct similar to previous stress test in 2017. Ultimately, the patient underwent cardiac catheterization to definitively establish his coronary vasculature. Again, he does not have any critical coronary lesions. The patient new onset of decline in his LV function of unclear cause. Again, the patient had an outpatient Holter monitor which showed a significant increase in his PVCs from 6000 a day to 12,000 a day. The patient question is whether that is enough to decrease his LV function. For now, my recommendation is that the patient stay on his medications. He has good maximal cardiac medications. The patient will follow up with Dr. Rodriguez. The patient ultimately may require a referral to [facility] or referral to electrophysiology for evaluation of his PVCs. [id number]/[facility] #: [id number] AILIN
[2018-11-06 19:11] LABS: TSH (Thyroid Stimulating Horm) 3.29 mcIU/mL (0.34-5.60)
[2018-11-06] MEDS: Enoxaparin(*) 40 MG/0.4 ML SYR SUBCUT SCH (20:33)
[2018-11-07 07:05] LABS: BUN/Creatinine Ratio 17.1 (8-20); Calcium 9.2 mg/dL (8.6-10.3); EGFR African American 84.2 (>60); EGFR Non-African American 69.6 (>60); Potassium 4.1 mmol/L (3.5-5.0)
[2018-11-07] MEDS: Lisinopril TAB* 10 MG PO SCH (08:24)
[2018-11-07] MEDS: amLODIPine TAB* 5 MG PO SCH (08:24)
[2018-11-07] MEDS: Aspirin 81 mg CHEW TAB* 81 MG TAB.CHEW PO SCH (08:25)
[2018-11-07] MEDS: Calcium Polycarbophil TAB* 625 MG PO SCH (08:25)
[2018-11-07] MEDS: Pantoprazole TAB * 40 MG TAB PO SCH (08:26)
[2018-11-07] MEDS: Allopurinol TAB* 300 MG PO SCH (08:28)
[2018-11-07] MEDS ORDERED: Metoprolol Succinate XL TAB* 100 MG PO SCH (10:00)
[2018-11-07 11:09] VITALS: BP 123/66
--- NOTE | 2018-11-07 11:41 | DS ---
CC: Dr. Quintanilla; Dr. Rodriguez * DISCHARGE SUMMARY: DATE OF ADMISSION: 11/05/18 DATE OF DISCHARGE: 11/07/18 PRIMARY CARE PROVIDER: Dr. Quintanilla. OTHER PROVIDERS: Outpatient orthopedic physician assistant is Dr. Rodriguez. ATTENDING PHYSICIAN: Dr. Dos Santos * (dictated by Liz Avery NP). PRIMARY DIAGNOSES: 1. Chest pain. 2. Reduced ejection fraction. 3. Arrhythmia. 4. BPH. 5. Coronary artery disease. 6. Gout. 7. Hypertension. CONSULTATIONS WHILE IN THE HOSPITAL: 1. Dr. Shin, interventional cardiology. 2. Dr. Garcia, cardiology. PROCEDURES WHILE IN THE HOSPITAL: Cardiac catheterization 11/06/18. STUDIES WHILE IN THE HOSPITAL: 1. EKG: Impression: Sinus rhythm. 2. Chest x-ray: No active cardiopulmonary disease. 3. Transthoracic echocardiogram: Left ventricle: The systolic function is mildly reduced. The estimated ejection fraction is 30% to 35%. 4. Moderate diffuse hypokinesis. 5. Mitral valve: There is no evidence of stenosis. There is trace to mild regurgitation. 6. Aortic valve: There is no evidence of stenosis. There is no significant regurgitation. 7. Tricuspid valve: There is physiological regurgitation. 8. Pericardium, extracardiac: There is no pericardial effusion. Compared to study of 03/28/19, the left ventricle function is much lower. Valve structures are the same. 9. EKG: Sinus rhythm. Ventricular trigeminy. No ST changes. 10. Nuclear medicine scan. Decreased ejection fraction with fixed deficit involving the inferior wall consistent with previous infarct. ASSESSMENT: Intermediate risk. DISCHARGE HOME MEDICATIONS: Continued Home Medications: 1. Zetia 10 mg p.o. at bedtime. 2. Fibercon 1250 mg p.o. daily. 3. Aspirin 81 mg p.o. daily. 4. Allopurinol 300 mg p.o. daily. 5. Amlodipine 10 mg p.o. at bedtime. 6. Crestor 5 mg p.o. every other day. 7. Quinapril 40 mg p.o. daily. 8. Metoprolol XL 100 mg p.o. daily. 9. Lansoprazole 30 mg p.o. daily. [place] Medications: No new home medications. Changed Home Medications: No medications changed. Discontinued Home Medications: No home medications discontinued. HISTORY OF PRESENT ILLNESS/HOSPITAL COURSE: Mr. Vasquez is a 73-year-old male with a past medical history significant for coronary artery disease, status post stenting x1 and subsequent in-stent restenosis requiring a [id number] procedure, hypertension, hyperlipidemia, and BPH who presented to the emergency room on 11/05/18 with complaints of intermittent chest pain and generalized malaise x2 days. Please see history and physical dictated by Dr. Andres for a complete summary of the events leading up to the hospitalization, but in short while in the emergency room the patient had a negative troponin and an EKG that revealed normal sinus rhythm with probable inferior infarct. The patient was risk stratified and given his risk factors, he was admitted to be ruled out for acute coronary syndrome. During this hospitalization, the patient had an exercise nuclear stress test and given the findings of an intermediate risk, he underwent a cardiac catheterization. The patient's cardiac catheterization revealed no critical coronary lesions. Cardiology, Dr. Garcia, was consulted and there is concern that the patient's ejection fraction has decreased from 45% in March 2018 to 30% today. There is unclear cause of this new-onset decline of LV function. There is concern of arrhythmia as the patient had an outpatient Holter monitor, which showed a significant increase in PVCs from 6000 a day to 12,000 a day. The patient's question is whether that is enough to decrease LV function. Cardiology has recommended the patient stay on his home medications as he has good maximal cardiac medications, follow up with Dr. Rodriguez, possibly have referral to heart failure center, and have referral to electrophysiology for evaluation of his PVCs. The patient has remained symptom-free while in the hospital. The patient has had labs which were unremarkable. The patient had troponin x3, which were all 0.00. The patient's vital signs have also been stable as he has been normotensive, afebrile, and is oxygenating well on room air. It should be noted that last evening, nursing expressed concern that the patient's heart rate would dip down into the mid to low 40s on telemetry. The patient was asymptomatic. The patient is currently in the low 60s bpm. Given the patient' s history of frequent PVCs and the fact that he has been asymptomatic, we have decided not to decrease his metoprolol as this could increase his frequency of PVCs, which would decrease perfusion. Therefore, the patient will be discharged on all the same medications and he will follow up with the orthopedic physician assistant. The patient is stable for discharge home. REVIEW OF SYSTEMS: The patient denies chest pain, malaise, shortness of breath , or palpitations. A 14-point review of systems was completed and all were negative. PHYSICAL EXAMINATION: Vital Signs: Temp 97.6, heart rate 50, RR 16, O2 saturation 99% on room air, BP 120/65. General: Mr. Vasquez is a 73-year-old male who is sitting on the edge of the bed. He appears to be in no acute distress. He appears the stated age. HEENT: EOMs intact. PERRLA. Oral mucosa is moist without lesions. Posterior pharynx was clear. Neck: Supple. No lymphadenopathy. Cardiac: S1 and S2 present. Regular rate and rhythm. No murmurs, rubs, or gallops. Respiratory: Lungs are clear to auscultation. No wheezes, rhonchi, or rubs. Good aeration. Abdomen: Soft and nontender. Bowel sounds normoactive. Extremities: No edema. No clubbing or cyanosis. Pedal pulses 2+ bilaterally. Musculoskeletal: No pain or deformities. Skin: Grossly intact. The patient has Tegaderm to right radial wrist that is clean, dry, and intact. No hematoma. Neuro: Neuro exam is grossly intact. No focal deficits or weakness. DIAGNOSTIC STUDIES/LABORATORY DATA: CBC obtained 11/05/18: WBC 8.2, hemoglobin 15.5, hematocrit 43, platelet 171. BMP obtained 11/07/18: Sodium 140, potassium 4.1, chloride 107, carbon dioxide 25, BUN 18, creatinine 1.05. DISCHARGE PLAN/FOLLOWUP: 1. Chest pain: The patient has been chest pain free. The patient has had troponins x3 which were all 0.00. The patient had a nuclear stress test and a subsequent catheterization that showed no significant cardiac lesions. The patient will follow up with Dr. Rodriguez, his outpatient orthopedic physician assistant. Dr. Garcia reports he will contact the office for the office to set up a followup with this patient. 2. Reduced EF: The patient has a noted reduced ejection fraction from March 2018. Specifically, the patient's EF in March 2018 was 45% and now it is 30%. There is concern that the patient's frequent PVCs could be enough to decrease his LV function. In addition, the patient underwent workup and he has no critical coronary lesions. Given this new finding, he will follow up with his orthopedic physician assistant, Dr. Rodriguez, as soon as possible. He will also possibly be referred to the Heart Failure Center and supervisor finishing for further evaluation. 3. Arrhythmia: The patient has frequent PVCs and trigeminy on tele. Per Dr. Garcia's consultation, he did have an outpatient Holter monitor, which showed a significant increase in his PVCs from 6000 a day to 12,000 a day. Given these findings, it is recommended that the patient be referred to an supervisor finishing for evaluation. This will be deferred to his primary orthopedic physician assistant, Dr. Rodriguez. 4. BPH: The patient should continue his tamsulosin. 5. CAD: As mentioned above, the patient underwent a cardiac catheterization and he has no critical coronary lesions. The patient should continue his aspirin, Zetia, Crestor, lisinopril, Toprol. 6. Gout: The patient should continue his allopurinol. 7. Hypertension: The patient has been normotensive while in the hospital. The patient should continue his Norvasc, metoprolol, lisinopril. 8. Followup: The patient should follow up with his primary care in 1 to 2 days. The patient should follow up with Dr. Rodriguez in [address] Rodriguez's office will contact the patient. I have encouraged the patient to contact Dr. Rodriguez's office if he does not hear from him. The patient should also follow up with Dr. hSin for a wound assessment post cath as recommended. 9. Education: The patient was educated on signs and symptoms of new or worsening condition and when to return to the emergency department. The patient stated understanding. This is a summarized report of a complex medical history and hospital stay. For further details, please see the entire medical record. TIME SPENT: Approximately 35 minutes were spent on this discharge; greater than half the time was spent [id number] with the patient discussing discharge plans and instructions. PLAN: This plan was discussed with my attending, Dr. Dos Santos, who is in agreement with my plan of care. LIZ AVERY, GENERAL FREIGHT AGENT [id number]/[facility] #: [id number] AILIN
[2018-11-07] MEDS ORDERED: CMCS:Rosuvastatin (NF) 5 MG TAB PO SCH (21:00)
--- NOTE | 2018-11-08 08:20 | CATH ---
"*[facility]* [address] [address] Main: [phone] [email or web address] Cardiac Catheterization Patient: Misael Vasquez : 1945 Study Date: 11/06/2018 Age: 73 Gender: M HR: Height: / BSA: Weight: / BMI: Artificial Pl[employer] Eye Maker: Reji Shin MD Ordering Physician: Reji Shin MD Referring Physician: Jose Thompson, - Right coronary angiography. - Left coronary angiography. Summary: 1. LAD: Proximal vessel lesion: There is a 45% stenosis. 2. Mild disease in Right coronary artery and Circumflex artery.. Recommendations: No evidence for significant coronary artery disease to explain the presence of significant left ventricle dysfunction. Indications: Cardiomyopathy. History: Chest pain. Coronary artery disease. Status post INferiorwall NSTEMI 2010 with recurrent stent placement in proximal right coronary artery. Non-Q wave myocardial infarction. Coronary artery disease. Stable angina. PMH: Myocardial infarction. Premature ventricular contractions. Functional status: CCS class II (slight limitation of ordinary activity). No renal failure. Risk factors: Hypertension. No diabetes. Dyslipidemia. Medications: The patient received antianginal therapy in the last two weeks, including: beta blockers and calcium channel blockers. Labs, prior tests, procedures, and surgery: Stress test. Abnormal. Stress myocardial perfusion imaging. Abnormal. Moderate risk of ischemia. Catheterization with coronary intervention (11/20/2010). Chest radiography. The study was normal. Blood tests: Troponin I (pre-procedure) of 0 ng/ml. International normalized ratio (INR) of 1.06. Serum potassium (K) of 4 mEq/l. Serum sodium (Na) of 137 mEq/l. Serum creatinine (current admission) of 1.03 mg/dl. Blood urea nitrogen of 20 mg/dl. Glucose of 123 mg/dl. Platelet count of 171 th/ul. White blood cell count (WBC) of 0.01 th/ul. Red blood cell count (RBC) of 4450 th/ul. Hematocrit of 43 %. Hemoglobin (pre-procedure) of 15.5 g/dl. Study data: Study status: Cardiac cath: urgent. Location: Catheterization laboratory. Consent: The risks, benefits, and alternatives to the procedure were explained to the patient and/or their healthcare operations representative and written informed consent was obtained. All available pre-procedure labs were reviewed. Procedure: 1. Supplemental oxygen. Oxygen, 2 L/min was administered throughout the procedure. 2. Local anesthesia. 1% lidocaine (2 ml) was administered. 3. Right radial artery access. A 6F [place] Slender sheath was advanced into the vessel. 4. Selective right coronary angiography. A 5F TIG 4.0 catheter was advanced into the right coronary vessel ostium under fluoroscopic guidance. Contrast was injected. Images were obtained in multiple projections. 5. Selective left coronary angiography. A 5F TIG 4.0 catheter was advanced into the left coronary vessel ostium under fluoroscopic guidance. Contrast was injected. Images were obtained in multiple projections. 6. Right radial artery hemostasis. Vessel closure was achieved with a Long Vasc Band device. Hemostasis was successfully obtained. 7. Initial setup. The patient was brought to the laboratory. Surface ECG leads, blood pressure measurements, and pulse oximetric signals were monitored. A baseline seven lead ECG was recorded. A time out was observed per protocol. 8. Skin preparation. The planned puncture sites were prepped and draped in the usual sterile manner. 9. Local anesthesia. 1% lidocaine was administered. Study completion: Minimal estimated blood loss. All catheters inserted during the procedure were removed. There were no apparent complications. Administered medications: Aspirin, 81mg, PO. VERSED (Midazolam), 1mg, IV. (Radial) Nitroglycerin, 300mcg, intra-arterially. (Radial) Verapamil, 3mg, intra-arterially. (Radial) Heparin, 3,000units, intra-arterially. Heparin, 1,000units, IV. NaCl 0.9% , infusion , at a rate of 100 ml/hr. NaCl 0.9% , 250 ml , bolus. Contrast: Omnipaque 350 70 ml (total dose). Omnipaque 350 130 ml (wasted). Radiation: Fluoroscopy dose: 162.5 cGy. Discharge: The patient tolerated the procedure well and was discharged from the lab in stable condition. Findings Coronary arteries: The coronary circulation is right dominant. The left main trifurcates into the LAD, a ramus intermedius, and the left circumflex. The left anterior descending gives rise to 2 diagonals. The left circumflex gives rise to 1 obtuse marginal. The right coronary gives rise to the posterior descending artery, 2 RV marginals, and 3 posterolaterals. There is a acute marginal branch that supplies the mid to distal inferior wall. Left main: Distal vessel lesion: There is a 10% stenosis. This lesion appears mildly calcified. LAD: Proximal vessel lesion: There is a 45% stenosis. Ramus intermedius: Normal, 0% stenosis. Left circumflex: 1st obtuse marginal: Minor luminal irregularities. Right coronary: Proximal vessel lesion: There is a 15% stenosis. Distal vessel lesion: There is a 20% stenosis. Mid-vessel lesion: There is a 20% stenosis. Left ventricle: A recent ejection fraction by echocardiography is available. Hemodynamics: + + + |Stage description |Condition 1 - | + + + |LV pressure s/d, ed |86/2, 8, dP/bu=765 mm Hg/s| + + + |Arterial pressure s/d (m)|93/59 (74) | + + + Prepared and electronically signed by Reji Shin MD 11/08/2018 08:20"
== END 2018-11-07 11:28 | disposition home or self-care (01) ==
LOC: ED 09:11 → MEDTELE 10:25
PROVIDERS: ADMIT Hospitalist; ATTEND Internal Medicine
DX: R07.9 Chest pain, unspecified (principal); I49.9 Cardiac arrhythmia, unspecified; R53.83 Other fatigue; R53.81 Other malaise; N40.0 Benign prostatic hyperplasia without lower urinary tract symptoms; I25.10 Atherosclerotic heart disease of native coronary artery without angina pectoris; M10.9 Gout, unspecified; E78.5 Hyperlipidemia, unspecified; I10 Essential (primary) hypertension; Z79.899 Other long term (current) drug therapy; Z79.82 Long term (current) use of aspirin; Z88.8 Allergy status to other drugs, medicaments and biological substances; Z87.891 Personal history of nicotine dependence; I25.2 Old myocardial infarction
CPT/HCPCS: 36415; 71045; 76937; 78452; 80048; 80053; 83735; 84443; 84484; 85025; 85610; 86618; 93005; 93017; 93306; 93458; 96372; 99283; A9270-GY; A9502; C8929; G0378; J1644; J1650; J2250; J2785; J3010